=== PATIENT | male | born 1950 | race Caucasian/White ===

== ENCOUNTER 2022-01-11 17:34 | Inpatient (IN) | payer BC ==
[~2022-01-11] VITALS: Ht 177.8 cm; Wt 61.7 kg
--- NOTE | 2022-01-11 18:46 | NUR ---
ASSUMED CARE OF PT. PT STATES "FEELING BETTER" AND REQUESTED TO HAVE LIGHTS DIMMED TO SLEEP. SIDE RAILS UP. DR SMITH HAS JUST SPOKEN W/ PT WELL.
[2022-01-11 19:52] LABS: ALANINE AMINOTRANSFERASE 30 U/L (12-78); ALBUMIN 2.1 G/DL (3.4-5.0); ALBUMIN/GLOBULIN RATIO 0.5 (1.1-1.5); ALKALINE PHOSPHATASE 107 IU/L (46-116); ANION GAP 9 (8-16); ASPARTATE AMINO TRANSFERASE 52 U/L (10-37); BASOPHILS % (AUTO) 0.1 % (0-1); BILIRUBIN,TOTAL 1.4 MG/DL (0.1-1.0); BLOOD UREA NITROGEN 30 MG/DL (7-18); CALCIUM 8.3 MG/DL (8.5-10.1); CHLORIDE 104 MMOL/L (99-107); CREATININE 2.15 MG/DL (0.60-1.10); EOSINOPHILS % (AUTO) 0.1 % (0-6); GLUCOSE 90 MG/DL (70-104); HEMATOCRIT 38.1 % (42.0-52.0); HEMOGLOBIN 12.6 g/dl (14.0-17.9); LYMPHOCYTES # (AUTO) 0.3 X10'3 (1.1-4.8); LYMPHOCYTES % (AUTO) 5.7 % (21-51); MEAN CORPUSCULAR VOLUME 84.8 FL (78-98); MEAN PLATELET VOLUME 6.7 FL (7.4-10.4); MONOCYTES # (AUTO) 0.2 X10'3 (0-0.9); MONOCYTES % (AUTO) 3.4 % (2-12); NEUTROPHILS # (AUTO) 4.4 X10'3 (1.8-7.7); NEUTROPHILS % (AUTO) 90.7 % (42-75); PLATELET COUNT 388 X10'3 (140-440); POTASSIUM 4.4 MMOL/L (3.5-5.1); RED CELL DISTRIBUTION WIDTH 16.8 % (11.5-14.5); SODIUM 139 MMOL/L (135-145); TOTAL CARBON DIOXIDE 26.2 MMOL/L (24-32); TOTAL PROTEIN 6.2 G/DL (6.4-8.2); WHITE BLOOD COUNT 4.8 X10'3 (4.5-11.0); eGFR 31 ML/MIN
--- NOTE | 2022-01-11 20:12 | NUR ---
SPOKE TO DR MUNOZ CONCERNING PT'S SLIGHT TACHYCARDIA. GIVEN VO FOR LITER OF NS. FLUIDS RUNNING AT PRESENT.
[2022-01-11] MEDS ORDERED: normal saline 1000ml 1,000 ML IV ONE ×2 (20:15→23:20)
[2022-01-11] MEDS ORDERED: CefTRIAXone 2gm/NS 100ml IVPB 100 ML IV ONE (22:05)
--- NOTE | 2022-01-11 22:33 | NUR ---
DR JAMA HAS COME TO ASSESS PT. I LET HIM KNOW ABOUT PT'S MILD BUT SUSTAINED TACHYCARDIA FOR THE PAST COUPLE HOURS. HE WILL PUT IT IN ORDER FOR A NELSON CATHETER HE WANTS TO KNOW URINE OUTPUT. NO OTHER ORDERS AT PRESENT.
--- NOTE | 2022-01-11 22:59 | NUR ---
BLOOD CULTURES HAVE BEEN TAKEN. ANTIBIOTICS ARE RUNNING.
--- NOTE | 2022-01-11 23:01 | NUR ---
NELSON HAS BEEN PLACED. PT HAS NO COMPLAINTS AT PRESENT.
--- NOTE | 2022-01-11 23:09 | NUR ---
SPOKE TO DR JAMA OVER THE PHONE. I LET HIM KNOW THAT CT RESULTS ARE UP AND REPORTING "SMALL AMOUNT OF PNEUMOPERITONEUM, COMPATIBLE WITH A PERFORATED VISCUS." DR JAMA IS ALSO AWARE THAT I ONLY GOT 200 CC OF VERY DARK URINE FROM NELSON CATHETER AFTER GIVING HIM A LITER FLUID BOLUS. DR JAMA GAVE A VO FOR ANOTHER LITER OF NS FLUID BOLUS. WILL CONTINUE TO MONITOR PT.
[2022-01-11] MEDS ORDERED: ondansetron 4mg rapidly disintigrating tab PO PRN (23:20)
[2022-01-11] MEDS ORDERED: morphine 2 MG/ML inj. syringe IV PRN ×2 (23:20)
[2022-01-11] MEDS ORDERED: ondansetron/PF 4mg/2ml inj IV PRN (23:20)
[2022-01-11] MEDS ORDERED: magnesium hydroxide 30ml (MOM) UD suspension PO PRN (23:20)
[2022-01-11] MEDS ORDERED: HYDROmorphone inj. 0.5 MG/0.5 ML DISP.SYRIN IV PRN (23:20)
[2022-01-11] MEDS ORDERED: mag hydrox/Alum hydrox/simeth 30ml oral suspension PO PRN (23:20)
[2022-01-11] MEDS ORDERED: HYDROcodone/acetaminophen 5mg/325mg tablet PO PRN (23:20)
[2022-01-11] MEDS ORDERED: acetaminophen 325mg tablet PO PRN (23:20)
[2022-01-11] MEDS ORDERED: acetaminophen 650mg rectal suppository RC PRN (23:20)
[2022-01-11] MEDS ORDERED: bisacodyl 10mg suppository rectal RC PRN (23:20)
[2022-01-11] MEDS ORDERED: diphenhydrAMINE 50 mg/ml inj IV PRN (23:20)
[2022-01-11] MEDS ORDERED: diphenhydrAMINE 25mg capsule PO PRN (23:20)
[2022-01-11 23:32] LABS: CLARITY,URINE CLOUDY (Clear); GLUCOSE, URINE NEGATIVE (Neg); KETONES,URINE TRACE mg/dl (Neg); LEUKOCYTE ESTERASE ,URINE NEGATIVE (Neg); OCCULT BLOOD,URINE TRACE-INTACT (Neg); PROTEIN,URINE 30 mg/dl (Neg)
[2022-01-11] MEDS: normal saline 1000ml 1,000 ML IV SCH (23:38)
[2022-01-11 23:42] LABS: HEMOGLOBIN A1C 5.9 % (4.5-6.2)
[2022-01-11] MEDS ORDERED: nicotine 21mg patch - 24 hr TD ONE (23:45)
[2022-01-11 23:48] LABS: UA COLLECTION TYPE FOLEY CATH
[2022-01-11 23:50] LABS: COLOR,URINE DARK YELLOW (Yellow); NITRITES, URINE NEGATIVE (Neg)
[2022-01-11 23:53] LABS: BACTERIA,URINE 3+ /HPF (Neg); COARSE GRANULAR CAST 0-3 /LPF (NEGATIVE); FINE GRANULAR CAST 0-3 /LPF (NEGATIVE); MUCUS STRANDS FEW /LPF (Neg); SQUAMOUS EPITHELIAL CELL,UR FEW /LPF (FEW)
[2022-01-11 23:56] LABS: MAGNESIUM 2.1 MG/DL (1.5-2.4); PHOSPHORUS 6.1 MG/DL (2.3-4.5)
[2022-01-11] MEDS ORDERED: diatr meglu/diatrizoate 30ml oral sol.-(3 dose) bottle ONE (23:59)
[2022-01-12] VITALS (22 sets, daily range): BP systolic 107–156; BP diastolic 61–83
--- NOTE | 2022-01-12 00:38 | NUR ---
Received report from HECTOR Smith. Awaiting patient arrival to the floor.
[2022-01-12 01:18] LABS: BASOPHILS % (AUTO) 0.2 % (0-1); EOSINOPHILS % (AUTO) 0.4 % (0-6); HEMOGLOBIN 11.9 g/dl (14.0-17.9); LYMPHOCYTES # (AUTO) 0.3 X10'3 (1.1-4.8); LYMPHOCYTES % (AUTO) 6.4 % (21-51); MEAN CORPUSCULAR HEMOGLOBIN 28.3 PG (27.0-31.0); MEAN CORPUSCULAR HGB CONC 33.1 g/dL (33.0-36.5); MEAN CORPUSCULAR VOLUME 85.4 FL (78-98); MEAN PLATELET VOLUME 6.7 FL (7.4-10.4); MONOCYTES # (AUTO) 0.2 X10'3 (0-0.9); MONOCYTES % (AUTO) 3.8 % (2-12); NEUTROPHILS % (AUTO) 89.2 % (42-75); PLATELET COUNT 357 X10'3 (140-440); RED BLOOD COUNT 4.21 X10'6 (4.70-6.10); RED CELL DISTRIBUTION WIDTH 16.6 % (11.5-14.5); WHITE BLOOD COUNT 4.5 X10'3 (4.5-11.0)
[2022-01-12 01:27] LABS: APTT 31 SECONDS (22-32)
[2022-01-12 01:30] LABS: ALANINE AMINOTRANSFERASE 28 U/L (12-78); ALBUMIN 1.8 G/DL (3.4-5.0); ALBUMIN/GLOBULIN RATIO 0.4 (1.1-1.5); ALKALINE PHOSPHATASE 92 IU/L (46-116); ANION GAP 13 (8-16); ASPARTATE AMINO TRANSFERASE 50 U/L (10-37); BLOOD UREA NITROGEN 33 MG/DL (7-18); BUN/CREATININE RATIO 17.4 (5.4-32.0); CALCIUM 7.8 MG/DL (8.5-10.1); CHLORIDE 104 MMOL/L (99-107); GLUCOSE 83 MG/DL (70-104); POTASSIUM 4.2 MMOL/L (3.5-5.1); SODIUM 139 MMOL/L (135-145); TOTAL CARBON DIOXIDE 21.7 MMOL/L (24-32); TOTAL PROTEIN 5.9 G/DL (6.4-8.2); eGFR 35 ML/MIN
[2022-01-12 01:38] LABS: CHOL/HDL RATIO 4.4 (0.00-4.99); CHOLESTEROL 74 MG/DL (0-200); CREATINE KINASE 111 U/L (39-308); HDL CHOLESTEROL 17 MG/DL (35-60); LDL CHOLESTEROL 30 MG/DL (50-100); TRIGLYCERIDES 58 MG/DL (20-135)
[2022-01-12 01:51] LABS: LIPASE < 50 U/L (73-393)
[2022-01-12] MEDS: diatr meglu/diatrizoate 30ml oral sol.-(3 dose) bottle PO SCH (02:20)
[2022-01-12] MEDS ORDERED: NO HOME MEDS ×2 (04:28→05:52)
--- NOTE | 2022-01-12 04:30 | NUR ---
Patient pulled out NG tube, tele and was actively attempting to pull out Marquez catheter as this RN walked in. Asked patient what he's doing and he stated "just trying to get some of these tubes out. Its kingston hard." Educated on the importance of not pulling out any tubes and keeping them in place to prevent any further injury to self as well as to serve its purpose. Patient verbalized understanding. Oriented patient to person, place, time and events. Re-inserted NG tube with help of another RN and placed patient back on tele. Bed alarms on and audible. Call light and items of frequent use within reach. Will continue to monitor.
--- NOTE | 2022-01-12 05:51 | NUR ---
Patient taken down to OR
[2022-01-12] MEDS: normal saline 1000ml 1,000 ML IV SCH ×4 (05:58→22:11)
[2022-01-12] MEDS ORDERED: sevoflurane 250ml liquid IH ONE (06:09)
[2022-01-12] MEDS ORDERED: midazolam 1 mg/ML 2ml injection ONE (06:11)
[2022-01-12] MEDS ORDERED: fentaNYL /PF 50mcg/ml 5ml ampule ONE (06:12)
[2022-01-12] MEDS ORDERED: rocuronium 10mg/ml inj IV ONE (06:12)
[2022-01-12] MEDS ORDERED: propofol inj 20 ML IV ONE (06:12)
--- NOTE | 2022-01-12 06:30 | NUR ---
Problems reprioritized. Patient report given, questions answered & plan of care reviewed with HECTOR Gifford.
[2022-01-12] MEDS ORDERED: morphine 4 MG/ML inj SYRINge IV PRN (07:10)
[2022-01-12] MEDS ORDERED: meperidine/PF 25mg/ml syringe IV PRN ×3 (07:10)
[2022-01-12] MEDS ORDERED: ringers solution, lacted 1,000 ML IV SCH (07:10)
[2022-01-12] MEDS ORDERED: ondansetron/PF 4mg/2ml inj IV PRN (07:10)
[2022-01-12] MEDS ORDERED: proCHLORperazine 10 MG/2 ml inj IV PRN (07:10)
[2022-01-12] MEDS ORDERED: morphine 2 MG/ML inj. syringe IV PRN (07:10)
[2022-01-12] MEDS ORDERED: albumin (Human) 5% 250ml 250 ML IV ONE ×2 (07:12→07:42)
[2022-01-12] MEDS ORDERED: ceFOXitin 1000 MG inj ONE ×2 (07:12)
[2022-01-12] MEDS: pantoprazole 40MG/NS 100ML BAG 100 ML IV SCH (08:00)
[2022-01-12] MEDS: docusate sod 100mg capsule PO SCH ×4 (08:00→22:06)
[2022-01-12] MEDS ORDERED: piperacillin/tazo 4.5gm/100ml 100 ML IV SCH (08:00)
[2022-01-12] MEDS ORDERED: FENTANYL CITRATE/PF 50 MCG/1 ML VIAL ONE (08:16)
[2022-01-12] MEDS ORDERED: glycopyrrolate 0.2mg/ml inj ONE (08:33)
[2022-01-12] MEDS ORDERED: neostigmine methylsulfate 1 MG/ML 10ml vial ONE (08:33)
--- NOTE | 2022-01-12 08:51 | NUR ---
Received from OR via BED, accompanied by Anesthesiologist DR MOYA and report given by Anesthesiologist AND CONCRETE LABORER. PT VERY DROWSY, NO S/S OF DISTRESS/DISCOMFORT. ABDOMEN W/GAUZE DRSG COVERING INCISION CDI, CHAITANYA TO LEFT ABD TO BULB SX W/S/S DRAINAGE, COLOSTOMY TO RIGHT ABD QUADRANT W/RED STOMA, NO DRAINAGE, NELSON CATHETER TO GRAVITY DRAINAGE W/DARK YELLOW URINE IN DRAINAGE BAG. PT RESTING COMFORTABLY. Addendum: 01/12/22 at 0936 by Yessenia Walton RN Amended: Links added.
[2022-01-12] MEDS ORDERED: naloxone 0.4 mg/ml inj IV PRN (09:15)
[2022-01-12] MEDS ORDERED: HYDROmorphone inj. 0.5 MG/0.5 ML DISP.SYRIN IV PRN (09:45)
--- NOTE | 2022-01-12 10:41 | NUR ---
Report called to receiving nurse. Transferred via BED, NO Belongings. NURSES AID AT BEDSIDE TO RECEIVE PT, GROCERY DEPARTMENT MANAGER WELL, PT SOMEWHAT CONFUSED AND WANTING TO GET OOB, STAYED W/PT WHILE NURSES AID WENT AND THEN PLACED A TABS UNIT ON PT. Special Issues communicated to receiving nurse. YES. Addendum: 01/12/22 at 1057 by Yessenia Walton RN Amended: Links added.
--- NOTE | 2022-01-12 11:20 | NUR ---
Patient got here not too long ago. Patient alert, oriented x 1 only. Patient currently on tab alarm. Patient was hooked to post op vital sign machine by the LOCKSTITCH WAISTBAND SETTER. Patient has midline incision clean, dry, and intact. 1 CHAITANYA noted with small amount of serosanguinous drainage and a new colostomy. NGT connected to low continuous suction. Patient was instructed not to pull his tubes.
--- NOTE | 2022-01-12 12:00 | NUR ---
As I came back from lunch, charge nurse Dora told me that patient pulled out his NGT. She told me that she is putting order for Ativan IV for this patient
[2022-01-12] MEDS: LORazepam 2 mg/ml vial IV PRN (12:53)
--- NOTE | 2022-01-12 14:33 | NUR ---
I called Dr. Chung on his phone to let him know that patient pulled his NGT. Dr. Chung said to leave it off.
[2022-01-12] MEDS: piperacillin/tazo 4.5gm/100ml 100 ML IV SCH ×2 (16:00→23:42)
--- NOTE | 2022-01-12 16:31 | NUR ---
12:54 Zosyn IV was given. 16:00 schedule not administered as the order said every 8 hours
--- NOTE | 2022-01-12 16:42 | NUR ---
Patient has been calm since I gave the Ativan 0.5 mg IV
[2022-01-12] MEDS: albuterol 2.5 MG/3 ML nebule NEB SCH (20:00)
[2022-01-13] VITALS: BP 111/63
[2022-01-13] MEDS: normal saline 1000ml 1,000 ML IV SCH ×4 (00:47→19:16)
--- NOTE | 2022-01-13 01:00 | NUR ---
Pt pulled out IV in Lt arm had another IV already in Rt A/C gave ativan and pt calmed down.
[2022-01-13] MEDS: LORazepam 2 mg/ml vial IV PRN (01:14)
[2022-01-13 04:00] VITALS: BP 104/49
[2022-01-13 06:27] LABS: BASOPHILS % (AUTO) 0.1 % (0-1); EOSINOPHILS % (AUTO) 0.2 % (0-6); HEMOGLOBIN 8.6 g/dl (14.0-17.9); LYMPHOCYTES # (AUTO) 0.4 X10'3 (1.1-4.8); LYMPHOCYTES % (AUTO) 7.2 % (21-51); MEAN CORPUSCULAR HEMOGLOBIN 28.2 PG (27.0-31.0); MEAN CORPUSCULAR HGB CONC 33.2 g/dL (33.0-36.5); MEAN CORPUSCULAR VOLUME 84.9 FL (78-98); MEAN PLATELET VOLUME 6.5 FL (7.4-10.4); MONOCYTES # (AUTO) 0.2 X10'3 (0-0.9); MONOCYTES % (AUTO) 3.7 % (2-12); NEUTROPHILS # (AUTO) 4.5 X10'3 (1.8-7.7); NEUTROPHILS % (AUTO) 88.8 % (42-75); PLATELET COUNT 336 X10'3 (140-440); RED BLOOD COUNT 3.06 X10'6 (4.70-6.10); RED CELL DISTRIBUTION WIDTH 17.2 % (11.5-14.5)
[2022-01-13 06:40] LABS: ALANINE AMINOTRANSFERASE 16 U/L (12-78); ALBUMIN 1.5 G/DL (3.4-5.0); ALBUMIN/GLOBULIN RATIO 0.5 (1.1-1.5); ALKALINE PHOSPHATASE 55 IU/L (46-116); ANION GAP 11 (8-16); ASPARTATE AMINO TRANSFERASE 26 U/L (10-37); BILIRUBIN,TOTAL 0.8 MG/DL (0.1-1.0); BLOOD UREA NITROGEN 28 MG/DL (7-18); BUN/CREATININE RATIO 18.8 (5.4-32.0); CALCIUM 7.7 MG/DL (8.5-10.1); CHLORIDE 108 MMOL/L (99-107); CREATININE 1.49 MG/DL (0.60-1.10); GLUCOSE 75 MG/DL (70-104); POTASSIUM 4.1 MMOL/L (3.5-5.1); SODIUM 142 MMOL/L (135-145); TOTAL CARBON DIOXIDE 23.1 MMOL/L (24-32); TOTAL PROTEIN 4.8 G/DL (6.4-8.2); eGFR 47 ML/MIN
--- NOTE | 2022-01-13 06:42 | NUR ---
Problems reprioritized. Patient report given, questions answered & plan of care reviewed with HECTOR Tubbs.
[2022-01-13 07:00] VITALS: BP 105/52
[2022-01-13] MEDS: docusate sod 100mg capsule PO SCH ×2 (08:00→20:00)
--- NOTE | 2022-01-13 09:15 | NUR ---
Patient's midline surgical dressing found off, clive were intact upon assessment. I reported this to the charge nurse Dora. She went see to look at the incision site. We thought patient might have taken his dressing off himself. Patient was discouraged from touching his wound or removing the dressing. Dora YOUNG took the packing out herself while she was at bedside with me. A new dressing applied on the midline incision.
--- NOTE | 2022-01-13 09:29 | NUR ---
peripheral IV leaking and not flushing. I tried to put a new peripheral IV without success, x 3 attempts already. Charge nurse Dora notified about this.
[2022-01-13] MEDS: pantoprazole 40MG/NS 100ML BAG 100 ML IV SCH (10:32)
[2022-01-13] MEDS: piperacillin/tazo 4.5gm/100ml 100 ML IV SCH ×2 (10:32→16:16)
[2022-01-13 12:00] VITALS: BP 101/55
--- NOTE | 2022-01-13 15:05 | NUR ---
[facility] assessment for surgical pt 65 year old male admitted from [facility] for evaluation of bowel perforation. Pt presented to [facility] 2 weeks prior w/ similar sx and left AMA. Pt admitted for sepsis, pneumoperitoneum, SBO, right lung mass, ARF, UTI, hypovolemia, COPD. Pt is s/p ex lap, lysis of adhesions, and proximal transvers colectomy w/ colostomy. Pt found to have complex mass involving the proximal transverse colon w/ extensive thicken of transverse colonic mesentery extending to the superior mesenteric vein. Small bowel adhesions. Pt has hx of cholelithiasis. . Physical assessment finds him to have an ostomy appliance to his RLQ , the stoma appears to be red and moist through bag and there is small amount of serousang drainage noted in bag. Pt is noted to be somewhat confused and unable to follow conversation and has a sitter. Will re approach in am to attempt to do ostomy education. Report to primary nurse provided. Addendum: 01/13/22 at 1510 by Laura Neal RN Amended: Links added.
--- NOTE | 2022-01-13 19:26 | NUR ---
Patient in room [facility] 357. I have received report from HECTOR Tubbs and had the opportunity to ask questions and assume patient care. Addendum: 01/13/22 at 1927 by Ade Abreu RN Amended: Links added.
[2022-01-13 20:00] VITALS: BP 109/57
[2022-01-13] MEDS: diatr meglu/diatrizoate 30ml oral sol.-(3 dose) bottle PO SCH (20:43)
[2022-01-13 23:45] VITALS: BP 158/71
--- NOTE | 2022-01-13 23:45 | NUR ---
Pain medication offered to pt, but he refused states "I dont really have any pain" some pian with turning, but states comfortable after repositioned. Addendum: 01/14/22 at 0318 by Ade Abreu RN Amended: Links added.
[2022-01-14] MEDS: piperacillin/tazo 4.5gm/100ml 100 ML IV SCH ×4 (00:33→23:20)
[2022-01-14] MEDS: normal saline 1000ml 1,000 ML IV SCH ×4 (00:34→14:14)
--- NOTE | 2022-01-14 06:30 | NUR ---
Problems reprioritized. Patient report given, questions answered & plan of care reviewed with HECTOR Benoit. Addendum: 01/14/22 at 0631 by Ade Abreu RN Amended: Links added.
[2022-01-14 06:39] LABS: BASOPHILS % (AUTO) 0.1 % (0-1); EOSINOPHILS % (AUTO) 0.3 % (0-6); HEMATOCRIT 25.8 % (42.0-52.0); HEMOGLOBIN 8.5 g/dl (14.0-17.9); LYMPHOCYTES # (AUTO) 0.5 X10'3 (1.1-4.8); LYMPHOCYTES % (AUTO) 6.7 % (21-51); MEAN CORPUSCULAR HEMOGLOBIN 27.9 PG (27.0-31.0); MEAN CORPUSCULAR HGB CONC 32.9 g/dL (33.0-36.5); MEAN CORPUSCULAR VOLUME 84.6 FL (78-98); MEAN PLATELET VOLUME 6.4 FL (7.4-10.4); MONOCYTES # (AUTO) 0.3 X10'3 (0-0.9); MONOCYTES % (AUTO) 4.8 % (2-12); NEUTROPHILS # (AUTO) 6.3 X10'3 (1.8-7.7); NEUTROPHILS % (AUTO) 88.1 % (42-75); PLATELET COUNT 314 X10'3 (140-440); RED BLOOD COUNT 3.05 X10'6 (4.70-6.10); RED CELL DISTRIBUTION WIDTH 17.2 % (11.5-14.5); WHITE BLOOD COUNT 7.2 X10'3 (4.5-11.0)
[2022-01-14 07:02] LABS: ALANINE AMINOTRANSFERASE 21 U/L (12-78); ALBUMIN 1.4 G/DL (3.4-5.0); ALBUMIN/GLOBULIN RATIO 0.4 (1.1-1.5); ALKALINE PHOSPHATASE 56 IU/L (46-116); ANION GAP 9 (8-16); ASPARTATE AMINO TRANSFERASE 31 U/L (10-37); BILIRUBIN,TOTAL 0.8 MG/DL (0.1-1.0); BLOOD UREA NITROGEN 22 MG/DL (7-18); CALCIUM 7.6 MG/DL (8.5-10.1); CHLORIDE 112 MMOL/L (99-107); CREATININE 1.22 MG/DL (0.60-1.10); GLUCOSE 65 MG/DL (70-104); POTASSIUM 3.1 MMOL/L (3.5-5.1); SODIUM 142 MMOL/L (135-145); TOTAL CARBON DIOXIDE 20.8 MMOL/L (24-32); TOTAL PROTEIN 4.8 G/DL (6.4-8.2); eGFR 59 ML/MIN
[2022-01-14 07:30] VITALS: BP 134/76
[2022-01-14] MEDS: docusate sod 100mg capsule PO SCH ×2 (07:36→19:33)
[2022-01-14] MEDS: pantoprazole 40MG/NS 100ML BAG 100 ML IV SCH (07:36)
[2022-01-14] MEDS ORDERED: DEXTROSE 15 GM of carb/4 tabs (each vial/BOTTLE has 4 tablets) PO PRN (08:25)
[2022-01-14] MEDS ORDERED: dextrose 15gm/59ml oral solution PO ONE (08:25)
[2022-01-14] MEDS: dextrose 5%-1/2 normal saline 1,000 ML IV SCH ×2 (09:18→19:30)
[2022-01-14] MEDS ORDERED: potassium Cl 20 mEq SR tablet PO STA (11:06)
[2022-01-14 12:25] VITALS: BP 140/71
[2022-01-14 19:23] VITALS: BP 150/76
[2022-01-15] VITALS: BP 141/73
[2022-01-15] MEDS: dextrose 5%-1/2 normal saline 1,000 ML IV SCH (04:27)
[2022-01-15 06:20] LABS: BASOPHILS % (AUTO) 0.1 % (0-1); EOSINOPHILS % (AUTO) 0.2 % (0-6); HEMATOCRIT 26.6 % (42.0-52.0); HEMOGLOBIN 8.6 g/dl (14.0-17.9); LYMPHOCYTES # (AUTO) 0.6 X10'3 (1.1-4.8); LYMPHOCYTES % (AUTO) 7.5 % (21-51); MEAN CORPUSCULAR HEMOGLOBIN 27.1 PG (27.0-31.0); MEAN CORPUSCULAR HGB CONC 32.4 g/dL (33.0-36.5); MEAN CORPUSCULAR VOLUME 83.6 FL (78-98); MEAN PLATELET VOLUME 6.4 FL (7.4-10.4); MONOCYTES # (AUTO) 0.5 X10'3 (0-0.9); MONOCYTES % (AUTO) 6.1 % (2-12); NEUTROPHILS # (AUTO) 6.5 X10'3 (1.8-7.7); NEUTROPHILS % (AUTO) 86.1 % (42-75); PLATELET COUNT 307 X10'3 (140-440); RED BLOOD COUNT 3.18 X10'6 (4.70-6.10); RED CELL DISTRIBUTION WIDTH 17.2 % (11.5-14.5); WHITE BLOOD COUNT 7.5 X10'3 (4.5-11.0)
--- NOTE | 2022-01-15 06:33 | NUR ---
Problems reprioritized. Patient report given, questions answered & plan of care reviewed with HECTOR Ye.
--- NOTE | 2022-01-15 06:41 | NUR ---
Patient in room [facility] 357. I have received report from dar YOUNG and had the opportunity to ask questions and assume patient care.
[2022-01-15 06:43] LABS: ALANINE AMINOTRANSFERASE 24 U/L (12-78); ALBUMIN 1.3 G/DL (3.4-5.0); ALBUMIN/GLOBULIN RATIO 0.4 (1.1-1.5); ALKALINE PHOSPHATASE 86 IU/L (46-116); ANION GAP 6 (8-16); ASPARTATE AMINO TRANSFERASE 31 U/L (10-37); BILIRUBIN,TOTAL 0.8 MG/DL (0.1-1.0); BLOOD UREA NITROGEN 16 MG/DL (7-18); BUN/CREATININE RATIO 13.4 (5.4-32.0); CALCIUM 7.5 MG/DL (8.5-10.1); CHLORIDE 109 MMOL/L (99-107); CREATININE 1.19 MG/DL (0.60-1.10); GLUCOSE 125 MG/DL (70-104); POTASSIUM 3.2 MMOL/L (3.5-5.1); SODIUM 140 MMOL/L (135-145); TOTAL CARBON DIOXIDE 24.8 MMOL/L (24-32); eGFR 60 ML/MIN
[2022-01-15 07:00] VITALS: BP 127/62
[2022-01-15] MEDS: pantoprazole 40MG/NS 100ML BAG 100 ML IV SCH (07:42)
[2022-01-15] MEDS: piperacillin/tazo 4.5gm/100ml 100 ML IV SCH ×2 (08:38→16:58)
[2022-01-15] MEDS: docusate sod 100mg capsule PO SCH ×2 (08:50→20:37)
--- NOTE | 2022-01-15 10:48 | NUR ---
Initial: Pt presented with abdominal pain found to have pneumoperitoneum. 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 Pt POD # 3 s/p exploratory laparotomy with transverse colon resection and colostomy. Per EMR pt A/O x 2 and confused, with acute encephalopathy per MD note. Pt would benefit from colostomy nutrition therapy education once appropriate. Patient's diet has been advanced to clear liquids and pt documented with average 58% of first three meals. Pending documentation of PO intake for today. LBM 4, documented with 150 mL stool output per I&O. Will continue to follow closely and make recommendations as appropriate. Recommendations: 1) Advance to low fiber diet as medically indicated 2) Bowel care per MD 3) Scaled weight this admit; subsequent weekly scaled weights 4) Colostomy nutrition therapy education once appropriate Addendum: 01/15/22 at [address] Amended: Links added.
--- NOTE | 2022-01-15 10:53 | NUR ---
Dr Chung saw pt and stated to KVO IV, order PTx to eval and tx pt, order full liquid diet, and admin Lovenox 40 QD SQ. HECTOR Ye notified.
--- NOTE | 2022-01-15 12:07 | NUR ---
[facility] assessment for ostomy care. Pt awake and agrees to care. Provided ostomy wafer and drainge bag and demonstrated w/ education how to open draiange bag and place to wafer. Return demonstration required much hands on assistance due to poor motor skills and concentration and retention. Ostomy pouch removed, see stoma assessment. Report to senior front end engineer for primary nurse that pt does not seem to be a candidate for ostomy education and self care. Addendum: 01/15/22 at 1226 by Laura Neal RN Amended: Links added.
[2022-01-15] MEDS: HYDROcodone/acetaminophen 10/325mg tab PO PRN (12:27)
[2022-01-15 14:00] VITALS: BP 113/57
[2022-01-15 18:00] VITALS: BP 126/69
--- NOTE | 2022-01-15 18:43 | NUR ---
patient appears stable all cares given colostomy moving liquid brown stool. worked with PT. seen by Dr Chung. report given to callie YOUNG
[2022-01-15] MEDS: magnesium hydroxide 30ml (MOM) UD suspension PO SCH (20:37)
[2022-01-15] MEDS: enoxaparin 40mg/0.4ml syringe SUBCUT SCH (20:38)
[2022-01-16] VITALS: BP 157/67
[2022-01-16] MEDS: albuterol 2.5 MG/3 ML nebule NEB SCH ×2 (01:17→11:00)
[2022-01-16] MEDS: piperacillin/tazo 4.5gm/100ml 100 ML IV SCH ×3 (01:18→16:51)
[2022-01-16] MEDS: dextrose 5%-1/2 normal saline 1,000 ML IV SCH ×2 (05:19→22:12)
--- NOTE | 2022-01-16 06:46 | NUR ---
Patient in room [facility] 357. I have received report from Susana YOUNG and had the opportunity to ask questions and assume patient care.
[2022-01-16 07:14] VITALS: BP 128/68
[2022-01-16 07:35] LABS: BASOPHILS % (AUTO) 0.1 % (0-1); EOSINOPHILS % (AUTO) 0.8 % (0-6); HEMATOCRIT 25.1 % (42.0-52.0); HEMOGLOBIN 8.3 g/dl (14.0-17.9); LYMPHOCYTES # (AUTO) 0.7 X10'3 (1.1-4.8); MEAN CORPUSCULAR HEMOGLOBIN 27.6 PG (27.0-31.0); MEAN CORPUSCULAR VOLUME 83.8 FL (78-98); MEAN PLATELET VOLUME 6.4 FL (7.4-10.4); MONOCYTES # (AUTO) 0.4 X10'3 (0-0.9); NEUTROPHILS # (AUTO) 4.9 X10'3 (1.8-7.7); NEUTROPHILS % (AUTO) 81.1 % (42-75); PLATELET COUNT 279 X10'3 (140-440); RED BLOOD COUNT 2.99 X10'6 (4.70-6.10); RED CELL DISTRIBUTION WIDTH 16.9 % (11.5-14.5)
[2022-01-16] MEDS: pantoprazole 40MG/NS 100ML BAG 100 ML IV SCH (07:36)
[2022-01-16] MEDS: docusate sod 100mg capsule PO SCH ×2 (07:39→20:20)
[2022-01-16] MEDS: magnesium hydroxide 30ml (MOM) UD suspension PO SCH ×2 (07:39→20:20)
[2022-01-16 08:09] LABS: ALANINE AMINOTRANSFERASE 22 U/L (12-78); ALBUMIN 1.3 G/DL (3.4-5.0); ALBUMIN/GLOBULIN RATIO 0.4 (1.1-1.5); ALKALINE PHOSPHATASE 91 IU/L (46-116); ANION GAP 6 (8-16); ASPARTATE AMINO TRANSFERASE 24 U/L (10-37); BILIRUBIN,TOTAL 0.9 MG/DL (0.1-1.0); BLOOD UREA NITROGEN 13 MG/DL (7-18); BUN/CREATININE RATIO 11.7 (5.4-32.0); CALCIUM 7.3 MG/DL (8.5-10.1); CHLORIDE 107 MMOL/L (99-107); CREATININE 1.11 MG/DL (0.60-1.10); GLUCOSE 78 MG/DL (70-104); SODIUM 139 MMOL/L (135-145); TOTAL CARBON DIOXIDE 26.3 MMOL/L (24-32); TOTAL PROTEIN 4.9 G/DL (6.4-8.2); eGFR 65 ML/MIN
[2022-01-16 08:24] LABS: POTASSIUM 2.9 MMOL/L (3.5-5.1)
--- NOTE | 2022-01-16 08:35 | NUR ---
Dr De paged via SMS Assist = PAGER ID: [phone] MESSAGE as follows "re: Johanna 357a K level=2.9 Any orders? Thanks, Dl or Candy [id number]" Response pending.
[2022-01-16] MEDS ORDERED: potassium Cl 20 mEq SR tablet PO STA (11:26)
[2022-01-16 12:03] VITALS: BP 128/73
[2022-01-16] MEDS ORDERED: potassium Cl 20 mEq SR tablet PO ONE (16:00)
--- NOTE | 2022-01-16 18:20 | NUR ---
Patient in room [facility] 357. I have received report from HECTOR Lizama and had the opportunity to ask questions and assume patient care.
--- NOTE | 2022-01-16 18:29 | NUR ---
Problems reprioritized. Patient report given, questions answered & plan of care reviewed with Jennifer YOUNG.
[2022-01-16 20:00] VITALS: BP 129/68
[2022-01-16] MEDS: enoxaparin 40mg/0.4ml syringe SUBCUT SCH (20:21)
[2022-01-17 00:01] VITALS: BP 134/77
[2022-01-17] MEDS: piperacillin/tazo 4.5gm/100ml 100 ML IV SCH ×3 (00:54→16:50)
--- NOTE | 2022-01-17 06:49 | NUR ---
Problems reprioritized. Patient report given, questions answered & plan of care reviewed with HECTOR Medina.
[2022-01-17 07:00] VITALS: BP 122/70
--- NOTE | 2022-01-17 07:02 | NUR ---
Patient in room [facility] 357. I have received report from Jennifer YOUNG and had the opportunity to ask questions and assume patient care.
[2022-01-17] MEDS: magnesium hydroxide 30ml (MOM) UD suspension PO SCH ×2 (08:00→20:34)
[2022-01-17] MEDS: docusate sod 100mg capsule PO SCH ×2 (08:00→20:34)
[2022-01-17] MEDS: pantoprazole 40mg Tablet.DR PO SCH (08:38)
[2022-01-17] MEDS ORDERED: magnesium hydroxide 30ml (MOM) UD suspension PO ONE (09:55)
[2022-01-17 11:00] VITALS: BP 118/70
--- NOTE | 2022-01-17 11:46 | NUR ---
f/u 01/17: Provided pt w/ written and verbal colostomy nutrition therapy education w/ RD contact info Addendum: 01/17/22 at [address] Amended: Links added.
[2022-01-17 14:43] LABS: BASOPHILS % (AUTO) 0.3 % (0-1); EOSINOPHILS # (AUTO) 0.1 X10'3 (0-0.9); EOSINOPHILS % (AUTO) 0.7 % (0-6); HEMATOCRIT 28.5 % (42.0-52.0); HEMOGLOBIN 9.2 g/dl (14.0-17.9); LYMPHOCYTES # (AUTO) 0.7 X10'3 (1.1-4.8); LYMPHOCYTES % (AUTO) 7.5 % (21-51); MEAN CORPUSCULAR HEMOGLOBIN 27.7 PG (27.0-31.0); MEAN CORPUSCULAR HGB CONC 32.3 g/dL (33.0-36.5); MEAN CORPUSCULAR VOLUME 85.7 FL (78-98); MEAN PLATELET VOLUME 6.7 FL (7.4-10.4); MONOCYTES # (AUTO) 0.4 X10'3 (0-0.9); MONOCYTES % (AUTO) 4.3 % (2-12); NEUTROPHILS % (AUTO) 87.2 % (42-75); PLATELET COUNT 395 X10'3 (140-440); RED BLOOD COUNT 3.33 X10'6 (4.70-6.10); RED CELL DISTRIBUTION WIDTH 16.9 % (11.5-14.5); WHITE BLOOD COUNT 9.2 X10'3 (4.5-11.0)
[2022-01-17 14:50] LABS: ALANINE AMINOTRANSFERASE 19 U/L (12-78); ALBUMIN 1.5 G/DL (3.4-5.0); ALBUMIN/GLOBULIN RATIO 0.4 (1.1-1.5); ALKALINE PHOSPHATASE 114 IU/L (46-116); ANION GAP 8 (8-16); ASPARTATE AMINO TRANSFERASE 25 U/L (10-37); BILIRUBIN,TOTAL 0.9 MG/DL (0.1-1.0); BLOOD UREA NITROGEN 11 MG/DL (7-18); BUN/CREATININE RATIO 9.8 (5.4-32.0); CALCIUM 7.8 MG/DL (8.5-10.1); CHLORIDE 104 MMOL/L (99-107); CREATININE 1.12 MG/DL (0.60-1.10); GLUCOSE 96 MG/DL (70-104); POTASSIUM 3.1 MMOL/L (3.5-5.1); SODIUM 139 MMOL/L (135-145); TOTAL CARBON DIOXIDE 26.9 MMOL/L (24-32); TOTAL PROTEIN 5.6 G/DL (6.4-8.2); eGFR 65 ML/MIN
[2022-01-17] MEDS: albuterol 2.5 MG/3 ML nebule NEB SCH ×2 (15:04→21:30)
[2022-01-17 18:00] VITALS: BP 125/61
--- NOTE | 2022-01-17 18:04 | NUR ---
PAGER ID: [phone] MESSAGE: [id number]- Pt's K 3.1, would you like to replace K? or just a 1x give 40mEq. Thank you Carol Flores [phone] ortho
--- NOTE | 2022-01-17 18:20 | NUR ---
Patient in room ORTHO 4023A. I have received report from HECTOR crowley and had the opportunity to ask questions and assume patient care.
--- NOTE | 2022-01-17 18:29 | NUR ---
Problems reprioritized. Patient report given, questions answered & plan of care reviewed with callie YOUNG.
[2022-01-17] MEDS: enoxaparin 40mg/0.4ml syringe SUBCUT SCH (20:35)
[2022-01-17 22:00] VITALS: BP 120/69
[2022-01-18] MEDS: piperacillin/tazo 4.5gm/100ml 100 ML IV SCH ×4 (02:27→23:46)
[2022-01-18] MEDS: dextrose 5%-1/2 normal saline 1,000 ML IV SCH (05:19)
[2022-01-18 05:48] VITALS: BP 128/62
--- NOTE | 2022-01-18 06:11 | NUR ---
Problems reprioritized. Patient report given, questions answered & plan of care reviewed with HECTOR Chavez.
--- NOTE | 2022-01-18 06:50 | NUR ---
Patient in room ORTHO 4023A. I have received report from HECTOR GATICA and had the opportunity to ask questions and assume patient care.
[2022-01-18] MEDS: pantoprazole 40mg Tablet.DR PO SCH (07:48)
[2022-01-18] MEDS: docusate sod 100mg capsule PO SCH ×2 (07:54→19:42)
[2022-01-18] MEDS: magnesium hydroxide 30ml (MOM) UD suspension PO SCH ×2 (08:00→20:00)
[2022-01-18 08:22] VITALS: BP 141/75
[2022-01-18 10:00] VITALS: BP 152/68
--- NOTE | 2022-01-18 10:00 | NUR ---
reviewed Real student nurse physical assessment charting
--- NOTE | 2022-01-18 10:31 | NUR ---
Reassessment; Pt has been advanced to Regular diet though RD recommendation is for Low fiber diet given recent GI surgery w/ colostomy. Pt consuming avg 50-75% of meals which meets approximately 85% of est protein and energy needs. Will provide Smoothies BID for additional calories/protein. Noted w/ 600ml colostomy output 01/17. Pt is reportedly confused at times though able to feed self. Will continue to monitor Recommendations: 1) Change to Low Fiber diet given recent GI surgery 2) Smoothies BIDBD 3) Bowel care per MD 4) Scaled weight this admit; subsequent weekly scaled weights Addendum: 01/18/22 at [address] Amended: Links added.
--- NOTE | 2022-01-18 15:46 | NUR ---
checked over Elaine skilled nursing professional physical assessment charting
[2022-01-18 16:45] VITALS: BP 132/72
[2022-01-18 18:00] VITALS: BP 119/49
--- NOTE | 2022-01-18 18:28 | NUR ---
Problems reprioritized. Patient report given, questions answered & plan of care reviewed with HECTOR MENDES.
[2022-01-18] MEDS: enoxaparin 40mg/0.4ml syringe SUBCUT SCH (19:43)
[2022-01-18 22:00] VITALS: BP 126/68
[2022-01-19] MEDS: magnesium hydroxide 30ml (MOM) UD suspension PO SCH ×3 (00:26→20:00)
[2022-01-19 06:00] VITALS: BP 124/69
--- NOTE | 2022-01-19 06:21 | NUR ---
Problems reprioritized. Patient report given, questions answered & plan of care reviewed with HECTRO WIGGINS.
--- NOTE | 2022-01-19 06:30 | NUR ---
Patient in room ORTHO 4023. I have received report from HECTOR Keita and had the opportunity to ask questions and assume patient care.
[2022-01-19 07:28] VITALS: BP 126/67
[2022-01-19] MEDS: docusate sod 100mg capsule PO SCH ×2 (07:43→19:59)
[2022-01-19] MEDS: pantoprazole 40mg Tablet.DR PO SCH (07:43)
[2022-01-19] MEDS: piperacillin/tazo 4.5gm/100ml 100 ML IV SCH (07:45)
--- NOTE | 2022-01-19 07:50 | NUR ---
Patient refused to finish second half of milk of magnesia dose at 0750.
[2022-01-19 08:01] LABS: BASOPHILS # (AUTO) 0.1 X10'3 (0-0.2); BASOPHILS % (AUTO) 0.6 % (0-1); EOSINOPHILS # (AUTO) 0.1 X10'3 (0-0.9); HEMATOCRIT 24.8 % (42.0-52.0); HEMOGLOBIN 8.3 g/dl (14.0-17.9); LYMPHOCYTES # (AUTO) 0.7 X10'3 (1.1-4.8); LYMPHOCYTES % (AUTO) 6.7 % (21-51); MEAN CORPUSCULAR HEMOGLOBIN 27.9 PG (27.0-31.0); MEAN CORPUSCULAR HGB CONC 33.5 g/dL (33.0-36.5); MEAN CORPUSCULAR VOLUME 83.3 FL (78-98); MEAN PLATELET VOLUME 6.6 FL (7.4-10.4); MONOCYTES # (AUTO) 0.5 X10'3 (0-0.9); MONOCYTES % (AUTO) 5.4 % (2-12); NEUTROPHILS # (AUTO) 8.4 X10'3 (1.8-7.7); NEUTROPHILS % (AUTO) 86.3 % (42-75); PLATELET COUNT 500 X10'3 (140-440); RED BLOOD COUNT 2.97 X10'6 (4.70-6.10); RED CELL DISTRIBUTION WIDTH 17.2 % (11.5-14.5); WHITE BLOOD COUNT 9.8 X10'3 (4.5-11.0)
[2022-01-19 08:07] LABS: ALANINE AMINOTRANSFERASE 15 U/L (12-78); ALBUMIN 1.2 G/DL (3.4-5.0); ALBUMIN/GLOBULIN RATIO 0.3 (1.1-1.5); ALKALINE PHOSPHATASE 133 IU/L (46-116); ANION GAP 9 (8-16); ASPARTATE AMINO TRANSFERASE 24 U/L (10-37); BILIRUBIN,TOTAL 0.6 MG/DL (0.1-1.0); BLOOD UREA NITROGEN 10 MG/DL (7-18); BUN/CREATININE RATIO 9.4 (5.4-32.0); CALCIUM 7.3 MG/DL (8.5-10.1); CHLORIDE 105 MMOL/L (99-107); CREATININE 1.06 MG/DL (0.60-1.10); GLUCOSE 97 MG/DL (70-104); POTASSIUM 3.1 MMOL/L (3.5-5.1); SODIUM 140 MMOL/L (135-145); TOTAL CARBON DIOXIDE 26.1 MMOL/L (24-32); TOTAL PROTEIN 4.9 G/DL (6.4-8.2); eGFR 69 ML/MIN
[2022-01-19] MEDS ORDERED: magnesium Cl slow-release 64mg tablet PO PRN (08:55)
[2022-01-19] MEDS ORDERED: potassium Cl 20 mEq SR tablet PO PRN (08:55)
[2022-01-19] MEDS ORDERED: magnesium 4gm in 100ml NS 100 ML IV PRN (08:55)
[2022-01-19] MEDS ORDERED: potassium CL 10mEq/100ml bag 100 ML IV PRN (08:55)
[2022-01-19] MEDS ORDERED: magnesium 2GM in 50ml NS 50 ML IV PRN (08:55)
[2022-01-19 09:13] LABS: MAGNESIUM 2.1 MG/DL (1.5-2.4)
[2022-01-19] MEDS: potassium Cl 20 mEq SR tablet PO PRN ×3 (09:39→20:00)
[2022-01-19 10:00] VITALS: BP 142/82
--- NOTE | 2022-01-19 11:09 | NUR ---
Pt unable to have ordered MRI of head D/T post op abdominal clive being present. Paged Dr Montgomery to notify.
--- NOTE | 2022-01-19 11:33 | NUR ---
Student Medication Administration: For this medication-pass time frame, all medication were reviewed, dispensed, administered and documented per hospital policy by cl Carlton.
--- NOTE | 2022-01-19 11:33 | NUR ---
Student documentation: I have reviewed and agree with all interventions, assessments performed and documented by Bianka, deputy director of nursing.
[2022-01-19] MEDS: piperacillin/tazo 3.375gm/50ml 50 ML IV SCH (16:54)
--- NOTE | 2022-01-19 17:04 | NUR ---
Student documentation: I have reviewed and agree with all interventions, assessments performed and documented by Peggy, nursing scheduler.
[2022-01-19 18:00] VITALS: BP_SYST 114; BP_SYST 141; BP_DIAS 66
--- NOTE | 2022-01-19 18:28 | NUR ---
Problems reprioritized. Patient report given, questions answered & plan of care reviewed with HECTOR Rodriguez.
[2022-01-19] MEDS: K and/or MAG REPLACEMENT MC SCH (20:00)
[2022-01-19] MEDS: enoxaparin 40mg/0.4ml syringe SUBCUT SCH (20:01)
[2022-01-19] MEDS: dextrose 5%-1/2 normal saline 1,000 ML IV SCH (20:10)
[2022-01-19 22:00] VITALS: BP 114/66
[2022-01-20] MEDS: piperacillin/tazo 3.375gm/50ml 50 ML IV SCH ×3 (00:11→16:20)
--- NOTE | 2022-01-20 03:17 | NUR ---
Pt pulled out IV, colostomy bag, and condom catheter. Changed linens and replaced all lines/drains. Pt seems confused.
[2022-01-20 06:00] VITALS: BP 114/67
[2022-01-20] MEDS: albuterol 2.5 MG/3 ML nebule NEB SCH ×3 (07:00→14:10)
[2022-01-20 07:30] LABS: MAGNESIUM 2.1 MG/DL (1.5-2.4); POTASSIUM 3.1 MMOL/L (3.5-5.1)
[2022-01-20] MEDS: multivitamins, therapeutics tablet PO SCH (07:50)
[2022-01-20] MEDS: potassium Cl 20 mEq SR tablet PO SCH (07:50)
[2022-01-20] MEDS: potassium Cl 20 mEq SR tablet PO PRN ×3 (07:50→20:10)
[2022-01-20] MEDS: pantoprazole 40mg Tablet.DR PO SCH (07:51)
[2022-01-20] MEDS: docusate sod 100mg capsule PO SCH ×2 (07:58→20:00)
[2022-01-20] MEDS: magnesium hydroxide 30ml (MOM) UD suspension PO SCH ×2 (07:59→20:00)
[2022-01-20] MEDS: K and/or MAG REPLACEMENT MC SCH ×2 (08:00→20:00)
[2022-01-20] MEDS: HYDROcodone/acetaminophen 10/325mg tab PO PRN ×2 (10:16→16:20)
[2022-01-20 14:00] VITALS: BP 106/54
--- NOTE | 2022-01-20 16:27 | NUR ---
Medication administration supervised by Clinical Any Commodity Sales Deliverer
[2022-01-20 18:00] VITALS: BP 117/60
--- NOTE | 2022-01-20 18:08 | NUR ---
Problems reprioritized. Patient report given, questions answered & plan of care reviewed with HECTOR Rodriguez.
--- NOTE | 2022-01-20 18:10 | NUR ---
Patient in room ORTHO 4023. I have received report from HECTOR Mederos and had the opportunity to ask questions and assume patient care.
[2022-01-20] MEDS: enoxaparin 40mg/0.4ml syringe SUBCUT SCH (20:11)
[2022-01-20 22:00] VITALS: BP 111/60
[2022-01-21] VITALS (7 sets, daily range): BP systolic 101–133; BP diastolic 58–67
[2022-01-21] MEDS: piperacillin/tazo 3.375gm/50ml 50 ML IV SCH ×3 (00:32→16:27)
--- NOTE | 2022-01-21 06:28 | NUR ---
Problems reprioritized. Patient report given, questions answered & plan of care reviewed with HECTOR Hawkins.
[2022-01-21 07:55] LABS: MAGNESIUM 2.3 MG/DL (1.5-2.4); POTASSIUM 3.9 MMOL/L (3.5-5.1)
[2022-01-21] MEDS: K and/or MAG REPLACEMENT MC SCH ×2 (08:00→19:32)
[2022-01-21] MEDS: pantoprazole 40mg Tablet.DR PO SCH (08:30)
[2022-01-21] MEDS: magnesium hydroxide 30ml (MOM) UD suspension PO SCH ×3 (08:30→19:33)
[2022-01-21] MEDS: multivitamins, therapeutics tablet PO SCH (08:30)
[2022-01-21] MEDS: docusate sod 100mg capsule PO SCH ×2 (08:30→19:26)
[2022-01-21] MEDS: potassium Cl 20 mEq SR tablet PO SCH (08:31)
[2022-01-21] MEDS: HYDROcodone/acetaminophen 10/325mg tab PO PRN ×2 (09:17→19:26)
--- NOTE | 2022-01-21 11:49 | NUR ---
PT AMBULATED OOB 100FT, TOLERATED WELL 2+ PERSON ASST.
--- NOTE | 2022-01-21 12:41 | NUR ---
[facility] to assess how ostomy pouch is holding. Per primary nurse the drainage end of bag was not closed properly and leaked, the previous shift placed a new wafer. Noted that he has a new ostomy appliance on and there is soft stool in the pouch. Will return in am to assess. Pt agrees. OSTOMY FACTS: Almost everyone has know of, or met, businessmen, entertainers, athletes, and people from all walks of life who have an ostomy. Ostomates (a person that has an ostomy) can ski, ride horses, bowl, and get healthy exercise in countless ways. Your usual activities of daily living can be resumed as soon as you are able. Gradually you will be able to wear the clothes worn before surgery. With modern pouches, nothing is noticeable under your clothing. It may be difficult at first to believe that an intimate relationship can be possible when one's body has been disfigured by surgery. This is not true. Love, fortunately, is not easily destroyed when it is based on genuine appreciation of a person as a thinking, feeling, reacting human being. AN OSTOMY IS NOT AN IMPAIRMENT!! DEFINITIONS: 1.OSTOMY: An opening that is created by a surgical procedure. The opening is called a "stoma". 2.STOMA: A surgical opening in the abdomen (belly) where intestine is brought through the abdominal wall and connected at the skin level. A stoma is shiny, wet and at first is dark purple but eventually turns pink, similar to the inside lining of your mouth. 3.COLON: A portion of the large bowel. 4.COLOSTOMY: A fecal diversion with an opening, (stoma) created anywhere along the colon. Making a connection between the colon and the abdominal wall. 5.ILLEOSTOMY: A fecal diversion with an opening, (stoma) created in the small intestine. Making a connection between the small intestine and the abdominal wall. 6.UROSTOMY: A urinary diversion with the ureters connected to a segment of the small bowel and one end is brought out and connected to the abdominal wall, creating a stoma. SHAPES and SIZES: "The stoma is usually round or oval. "It is anywhere from a dime to half dollar in size. "A stoma reaches its permanent size 6-8 weeks after surgery. PRODUCTS: 1.POUCH or APPLIANCE: An external device to contain stool or urine output and protect the skin around the stoma. It can be a one piece pouch or two pieces (a pouch and a wafer). 2.BARRIER: Substance that is used to protect the skin around the stoma from drainage and adhesive. 3.SKIN PREP or SEALANT: Product applied to the skin to reduce injury from moisture, drainage, or repeated pouch removal. Available in spray or wipes. 4.CLOSURE or CLAMP: A device used to close the bottom of a drainable pouch. 5.BRIDGE or TOM: A piece of plastic placed under a loop of bowel on the skins surface, to secure the bowel in place while the skin heals. POUCH CHANGE PROCEEDURE: 1.Assemble all the supplies "1 or 2 piece appliance "Ostomy paste (if needed) "Ostomy powder (if needed) "Skin prep wipes ( not recommended with coloplast products) "Moist wash cloth or cotton balls 2.Remove plastic center and paper backing from pouch. If pouch or wafer is not precut, use the sizing guide, or plastic backing from pouch to make a pattern. Do this by placing the paper over the stoma and trace it, or draw a pattern. Cut the wafer to fit and set it aside. 3.Remove old pouch by lifting up on tape while pressing skin down away from the tape. If there is a clip on your pouch, remove it and save it. 4.Clean skin or stoma with moistened wash cloth or cotton balls. Place a clean cotton ball over stoma hole to catch any drainage. Let skin dry. 5.For grooves or uneven areas in the skin- apply ostomy paste and sprinkle with ostomy powder, then gently shape the past so the area around the stoma is smooth and as flat as possible. Wipe off or blow away excess. Blot powder with skin prep wipe (DO NOT wipe powder). Let dry until no longer sticky. 6.For irritated or reddened skin- sprinkle ostomy powder on red or irritated area. Wipe off or blow away excess. Blot powder with skin prep wipe (DO NOT wipe powder). Let dry until no longer sticky. 7.Apply skin prep wipe to skin to which the pouch and tape will adhere. Let dry until no longer sticky. 8.If you have a one piece appliance- apply pouch so it is centered around the stoma. No skin should be exposed to stool. All skin should be covered by paste or pouch. 9.If you have a two piece appliance- Apply the wafer as described above, then snap or stick pouch onto wafer. Check to make sure wafer and pouch are securely connected. 10.Place clip on bottom of pouch. 11.Empty pouch when 1/3 full. OSTOMY SKIN CARE: "Good health care and nutrition are essential for healthy skin. "Usually a correct pouch size will prevent skin breakdown. "Use warm water and soap for skin cleansing. "Do not use creams or oil based products on skin around the stoma. This will prevent the appliance from sticking. "Use skin prep around the stoma. IT CAN TAKE 24 HOURS TO SEVERAL DAYS FOR SKIN TO HEAL. IF IT IS NOT RESOLVING, OR GETTING WORSE, CALL YOUR PRIMARY CARE DOCTOR. Addendum: 01/21/22 at 1250 by Laura Neal RN Amended: Links added.
--- NOTE | 2022-01-21 18:44 | NUR ---
Report given to Jennifer YOUNG, patient assisted back to bed and resting comfortably at this time.
--- NOTE | 2022-01-21 18:53 | NUR ---
Patient in room ORTHO 4023. I have received report from HECTOR Hawkins and had the opportunity to ask questions and assume patient care.
[2022-01-21] MEDS: enoxaparin 40mg/0.4ml syringe SUBCUT SCH (19:27)
[2022-01-22] MEDS: piperacillin/tazo 3.375gm/50ml 50 ML IV SCH ×3 (00:36→15:43)
--- NOTE | 2022-01-22 06:17 | NUR ---
Problems reprioritized. Patient report given, questions answered & plan of care reviewed with HECTOR Ledbetter.
[2022-01-22 06:50] LABS: BASOPHILS % (AUTO) 0.3 % (0-1); EOSINOPHILS # (AUTO) 0.2 X10'3 (0-0.9); EOSINOPHILS % (AUTO) 1.6 % (0-6); HEMATOCRIT 26.4 % (42.0-52.0); HEMOGLOBIN 8.5 g/dl (14.0-17.9); LYMPHOCYTES # (AUTO) 0.9 X10'3 (1.1-4.8); LYMPHOCYTES % (AUTO) 9.2 % (21-51); MEAN CORPUSCULAR HEMOGLOBIN 26.9 PG (27.0-31.0); MEAN CORPUSCULAR HGB CONC 32.1 g/dL (33.0-36.5); MEAN PLATELET VOLUME 6.6 FL (7.4-10.4); MONOCYTES # (AUTO) 0.6 X10'3 (0-0.9); MONOCYTES % (AUTO) 6.3 % (2-12); NEUTROPHILS % (AUTO) 82.6 % (42-75); PLATELET COUNT 672 X10'3 (140-440); RED BLOOD COUNT 3.14 X10'6 (4.70-6.10); RED CELL DISTRIBUTION WIDTH 17.6 % (11.5-14.5); WHITE BLOOD COUNT 9.7 X10'3 (4.5-11.0)
[2022-01-22 07:15] VITALS: BP 109/58
[2022-01-22 07:20] LABS: ALANINE AMINOTRANSFERASE 13 U/L (12-78); ALBUMIN 1.4 G/DL (3.4-5.0); ALBUMIN/GLOBULIN RATIO 0.4 (1.1-1.5); ALKALINE PHOSPHATASE 117 IU/L (46-116); ANION GAP 5 (8-16); ASPARTATE AMINO TRANSFERASE 24 U/L (10-37); BILIRUBIN,TOTAL 0.4 MG/DL (0.1-1.0); BLOOD UREA NITROGEN 13 MG/DL (7-18); BUN/CREATININE RATIO 11.6 (5.4-32.0); CALCIUM 7.6 MG/DL (8.5-10.1); CHLORIDE 104 MMOL/L (99-107); CREATININE 1.12 MG/DL (0.60-1.10); GLUCOSE 93 MG/DL (70-104); MAGNESIUM 2.1 MG/DL (1.5-2.4); POTASSIUM 4.5 MMOL/L (3.5-5.1); SODIUM 136 MMOL/L (135-145); TOTAL CARBON DIOXIDE 26.9 MMOL/L (24-32); TOTAL PROTEIN 5.2 G/DL (6.4-8.2); eGFR 65 ML/MIN
[2022-01-22] MEDS: docusate sod 100mg capsule PO SCH ×2 (07:41→22:32)
[2022-01-22] MEDS: multivitamins, therapeutics tablet PO SCH (07:41)
[2022-01-22] MEDS: pantoprazole 40mg Tablet.DR PO SCH (07:41)
[2022-01-22] MEDS: potassium Cl 20 mEq SR tablet PO SCH (07:41)
[2022-01-22] MEDS: magnesium hydroxide 30ml (MOM) UD suspension PO SCH ×2 (07:41→22:32)
[2022-01-22] MEDS: K and/or MAG REPLACEMENT MC SCH ×2 (07:42→20:00)
[2022-01-22 10:13] VITALS: BP 109/65
--- NOTE | 2022-01-22 11:30 | NUR ---
MD aware of swollen head of penis and foreskin being retracted back. Assisted MD in manually returning foreskin to original position.
--- NOTE | 2022-01-22 11:51 | NUR ---
Assisted pt with onel care after incont episode and noted that foreskin is retracted and glans is edematous. Notified primary nurse who will speak to MD cortez this. Unable to retract the foreskin at this time. Addendum: 01/22/22 at 1155 by Laura Neal RN Amended: Links added.
[2022-01-22 15:22] VITALS: BP 100/63
[2022-01-22 17:30] VITALS: BP 108/66
--- NOTE | 2022-01-22 18:10 | NUR ---
Problems reprioritized. Patient report given, questions answered & plan of care reviewed with HECTOR Victoria.
--- NOTE | 2022-01-22 19:27 | NUR ---
Patient in room ORTHO 4023. I have received report from Kaycee YOUNG and had the opportunity to ask questions and assume patient care.
[2022-01-22 22:00] VITALS: BP 106/58
[2022-01-22] MEDS: enoxaparin 40mg/0.4ml syringe SUBCUT SCH (22:31)
[2022-01-22] MEDS: HYDROcodone/acetaminophen 10/325mg tab PO PRN (22:32)
[2022-01-23] MEDS: piperacillin/tazo 3.375gm/50ml 50 ML IV SCH ×3 (02:15→15:22)
[2022-01-23 06:00] VITALS: BP 107/56
[2022-01-23 06:55] LABS: BASOPHILS % (AUTO) 0.3 % (0-1); HEMOGLOBIN 8.3 g/dl (14.0-17.9); MEAN CORPUSCULAR VOLUME 85.2 FL (78-98); NEUTROPHILS # (AUTO) 7.7 X10'3 (1.8-7.7); WHITE BLOOD COUNT 9.9 X10'3 (4.5-11.0)
[2022-01-23 07:00] LABS: EOSINOPHILS # (AUTO) 0.1 X10'3 (0-0.9); EOSINOPHILS % (AUTO) 1.5 % (0-6); HEMATOCRIT 24.8 % (42.0-52.0); LYMPHOCYTES # (AUTO) 1.2 X10'3 (1.1-4.8); LYMPHOCYTES % (AUTO) 12.5 % (21-51); MEAN CORPUSCULAR HEMOGLOBIN 28.5 PG (27.0-31.0); MEAN CORPUSCULAR HGB CONC 33.4 g/dL (33.0-36.5); MEAN PLATELET VOLUME 6.5 FL (7.4-10.4); MONOCYTES # (AUTO) 0.8 X10'3 (0-0.9); MONOCYTES % (AUTO) 7.8 % (2-12); NEUTROPHILS % (AUTO) 77.9 % (42-75); PLATELET COUNT 693 X10'3 (140-440); RED BLOOD COUNT 2.91 X10'6 (4.70-6.10); RED CELL DISTRIBUTION WIDTH 17.7 % (11.5-14.5)
--- NOTE | 2022-01-23 07:01 | NUR ---
Patient in room ORTHO 4023. I have received report from SLAVA YOUNG and had the opportunity to ask questions and assume patient care.
[2022-01-23 07:16] LABS: ALANINE AMINOTRANSFERASE 19 U/L (12-78); ALBUMIN 1.5 G/DL (3.4-5.0); ALBUMIN/GLOBULIN RATIO 0.4 (1.1-1.5); ALKALINE PHOSPHATASE 131 IU/L (46-116); ANION GAP 5 (8-16); ASPARTATE AMINO TRANSFERASE 32 U/L (10-37); BILIRUBIN,TOTAL 0.3 MG/DL (0.1-1.0); BLOOD UREA NITROGEN 13 MG/DL (7-18); BUN/CREATININE RATIO 10.7 (5.4-32.0); CALCIUM 7.8 MG/DL (8.5-10.1); CHLORIDE 104 MMOL/L (99-107); CREATININE 1.22 MG/DL (0.60-1.10); GLUCOSE 105 MG/DL (70-104); MAGNESIUM 2.2 MG/DL (1.5-2.4); POTASSIUM 4.3 MMOL/L (3.5-5.1); SODIUM 136 MMOL/L (135-145); TOTAL CARBON DIOXIDE 27.3 MMOL/L (24-32); TOTAL PROTEIN 5.3 G/DL (6.4-8.2); eGFR 59 ML/MIN
[2022-01-23] MEDS: K and/or MAG REPLACEMENT MC SCH ×2 (08:00→20:00)
[2022-01-23] MEDS: pantoprazole 40mg Tablet.DR PO SCH (09:23)
[2022-01-23] MEDS: multivitamins, therapeutics tablet PO SCH (09:23)
[2022-01-23] MEDS: docusate sod 100mg capsule PO SCH ×3 (09:23→21:27)
[2022-01-23] MEDS: magnesium hydroxide 30ml (MOM) UD suspension PO SCH ×3 (09:24→21:27)
[2022-01-23] MEDS: potassium Cl 20 mEq SR tablet PO SCH (09:24)
[2022-01-23 10:09] VITALS: BP 114/68
--- NOTE | 2022-01-23 10:45 | NUR ---
Reassessment: Patient's diet has been appropriately changed to low fiber. PO intake fluctuates, documented with average 48% PO intake of six meals, which significantly improved to 100% PO intake once minced and moist grind all (MM5) was added to diet order. [facility] 01/22, documented with 950 mL stool output. No nutrition intervention implemented at this time. Will continue to follow. Recommendations: 1) Continue MM5 low fiber diet; advance texture to SB6 per ST recs 2) Smoothies BIDBD 3) Bowel care per MD 4) Weekly scaled weights Addendum: 01/23/22 at [address] Amended: Links added.
[2022-01-23 17:30] VITALS: BP 110/64
--- NOTE | 2022-01-23 18:26 | NUR ---
Problems reprioritized. Patient report given, questions answered & plan of care reviewed with JULIA YOUNG.
--- NOTE | 2022-01-23 18:32 | NUR ---
Patient in room ORTHO 4023. I have received report from Janny Lizama and had the opportunity to ask questions and assume patient care. Addendum: 01/23/22 at 1832 by Betsy Blackmon RN Amended: Links added.
[2022-01-23] MEDS: enoxaparin 40mg/0.4ml syringe SUBCUT SCH ×2 (20:00→21:29)
[2022-01-23 22:00] VITALS: BP 109/69
--- NOTE | 2022-01-24 01:00 | NUR ---
inc of urine skin care done complete bed change colostomy bag burped and was emptied eariler 250 liquid formed stool. pt had refused oral meds eariler and his lovenox.
[2022-01-24] MEDS: piperacillin/tazo 3.375gm/50ml 50 ML IV SCH ×3 (01:07→16:17)
--- NOTE | 2022-01-24 05:35 | NUR ---
inc of urine skin care done and pt changed. tolerated well.
[2022-01-24 06:01] LABS: EOSINOPHILS # (AUTO) 0.1 X10'3 (0-0.9); HEMOGLOBIN 8.5 g/dl (14.0-17.9); MONOCYTES # (AUTO) 0.7 X10'3 (0-0.9); WHITE BLOOD COUNT 9.4 X10'3 (4.5-11.0)
[2022-01-24 06:03] LABS: BASOPHILS % (AUTO) 0.4 % (0-1); EOSINOPHILS % (AUTO) 1.2 % (0-6); HEMATOCRIT 25.9 % (42.0-52.0); LYMPHOCYTES # (AUTO) 1.1 X10'3 (1.1-4.8); LYMPHOCYTES % (AUTO) 12.1 % (21-51); MEAN CORPUSCULAR HEMOGLOBIN 27.7 PG (27.0-31.0); MEAN CORPUSCULAR HGB CONC 32.8 g/dL (33.0-36.5); MEAN CORPUSCULAR VOLUME 84.4 FL (78-98); MEAN PLATELET VOLUME 6.6 FL (7.4-10.4); MONOCYTES % (AUTO) 6.9 % (2-12); NEUTROPHILS # (AUTO) 7.5 X10'3 (1.8-7.7); NEUTROPHILS % (AUTO) 79.4 % (42-75); PLATELET COUNT 761 X10'3 (140-440); RED BLOOD COUNT 3.08 X10'6 (4.70-6.10); RED CELL DISTRIBUTION WIDTH 17.7 % (11.5-14.5)
--- NOTE | 2022-01-24 06:04 | NUR ---
Problems reprioritized. Patient report given, questions answered & plan of care reviewed with HECTOR SERRANO. Addendum: 01/24/22 at 0604 by Betsy Blackmon RN Amended: Links added.
[2022-01-24 06:11] LABS: ALANINE AMINOTRANSFERASE 24 U/L (12-78); ALBUMIN 1.6 G/DL (3.4-5.0); ALBUMIN/GLOBULIN RATIO 0.4 (1.1-1.5); ALKALINE PHOSPHATASE 136 IU/L (46-116); ANION GAP 4 (8-16); ASPARTATE AMINO TRANSFERASE 35 U/L (10-37); BILIRUBIN,TOTAL 0.3 MG/DL (0.1-1.0); BLOOD UREA NITROGEN 14 MG/DL (7-18); BUN/CREATININE RATIO 12.6 (5.4-32.0); CALCIUM 7.7 MG/DL (8.5-10.1); CHLORIDE 103 MMOL/L (99-107); CREATININE 1.11 MG/DL (0.60-1.10); GLUCOSE 97 MG/DL (70-104); POTASSIUM 4.4 MMOL/L (3.5-5.1); SODIUM 134 MMOL/L (135-145); TOTAL CARBON DIOXIDE 26.6 MMOL/L (24-32); TOTAL PROTEIN 5.4 G/DL (6.4-8.2); eGFR 65 ML/MIN
[2022-01-24 07:39] VITALS: BP 110/64
[2022-01-24] MEDS: K and/or MAG REPLACEMENT MC SCH ×2 (08:00→20:00)
[2022-01-24] MEDS: docusate sod 100mg capsule PO SCH ×2 (08:06→20:00)
[2022-01-24] MEDS: multivitamins, therapeutics tablet PO SCH (08:06)
[2022-01-24] MEDS: magnesium hydroxide 30ml (MOM) UD suspension PO SCH ×2 (08:07→20:00)
[2022-01-24] MEDS: potassium Cl 20 mEq SR tablet PO SCH (08:07)
[2022-01-24] MEDS: pantoprazole 40mg Tablet.DR PO SCH (08:07)
--- NOTE | 2022-01-24 08:22 | NUR ---
Patient in room ORTHO 4023. I have received report from JULIA YOUNG and had the opportunity to ask questions and assume patient care.
[2022-01-24] MEDS: HYDROcodone/acetaminophen 10/325mg tab PO PRN ×2 (09:30→21:35)
[2022-01-24 13:55] VITALS: BP 108/67
[2022-01-24 14:00] VITALS: BP 103/59
[2022-01-24 17:30] VITALS: BP 87/68
--- NOTE | 2022-01-24 18:35 | NUR ---
Problems reprioritized. Patient report given, questions answered & plan of care reviewed with [].
--- NOTE | 2022-01-24 18:48 | NUR ---
Patient in room ORTHO 4023. I have received report from HECTOR SERRANO and had the opportunity to ask questions and assume patient care. Addendum: 01/24/22 at 1848 by Betsy Blackmon RN Amended: Links added.
[2022-01-24] MEDS: enoxaparin 40mg/0.4ml syringe SUBCUT SCH (20:00)
--- NOTE | 2022-01-24 21:42 | NUR ---
medicated for pain and itching.
[2022-01-24 22:00] VITALS: BP 118/71
[2022-01-25] MEDS: piperacillin/tazo 3.375gm/50ml 50 ML IV SCH ×3 (00:22→16:29)
[2022-01-25 02:00] VITALS: BP 118/61
[2022-01-25 05:57] LABS: BASOPHILS % (AUTO) 0.3 % (0-1); EOSINOPHILS # (AUTO) 0.1 X10'3 (0-0.9); HEMATOCRIT 26.3 % (42.0-52.0); HEMOGLOBIN 8.7 g/dl (14.0-17.9); LYMPHOCYTES # (AUTO) 1.2 X10'3 (1.1-4.8); LYMPHOCYTES % (AUTO) 15.2 % (21-51); MEAN CORPUSCULAR HEMOGLOBIN 28.4 PG (27.0-31.0); MEAN CORPUSCULAR HGB CONC 33.2 g/dL (33.0-36.5); MEAN CORPUSCULAR VOLUME 85.6 FL (78-98); MEAN PLATELET VOLUME 6.4 FL (7.4-10.4); MONOCYTES # (AUTO) 0.6 X10'3 (0-0.9); MONOCYTES % (AUTO) 7.1 % (2-12); NEUTROPHILS # (AUTO) 6.1 X10'3 (1.8-7.7); NEUTROPHILS % (AUTO) 76.4 % (42-75); PLATELET COUNT 719 X10'3 (140-440); RED BLOOD COUNT 3.08 X10'6 (4.70-6.10); RED CELL DISTRIBUTION WIDTH 18.2 % (11.5-14.5)
[2022-01-25 06:00] VITALS: BP 97/55
[2022-01-25 06:17] LABS: ALANINE AMINOTRANSFERASE 19 U/L (12-78); ALBUMIN 1.6 G/DL (3.4-5.0); ALBUMIN/GLOBULIN RATIO 0.4 (1.1-1.5); ALKALINE PHOSPHATASE 137 IU/L (46-116); ANION GAP 7 (8-16); ASPARTATE AMINO TRANSFERASE 22 U/L (10-37); BILIRUBIN,TOTAL 0.4 MG/DL (0.1-1.0); BLOOD UREA NITROGEN 13 MG/DL (7-18); BUN/CREATININE RATIO 11.1 (5.4-32.0); CALCIUM 7.7 MG/DL (8.5-10.1); CHLORIDE 102 MMOL/L (99-107); CREATININE 1.17 MG/DL (0.60-1.10); GLUCOSE 97 MG/DL (70-104); POTASSIUM 4.2 MMOL/L (3.5-5.1); SODIUM 136 MMOL/L (135-145); TOTAL PROTEIN 5.6 G/DL (6.4-8.2); eGFR 62 ML/MIN
--- NOTE | 2022-01-25 06:36 | NUR ---
Problems reprioritized. Patient report given, questions answered & plan of care reviewed with HECTOR SERRANO. Addendum: 01/25/22 at 0636 by Betsy Blackmon RN Amended: Links added.
--- NOTE | 2022-01-25 06:56 | NUR ---
Patient in room ORTHO 4023. I have received report from Betsy YOUNG and had the opportunity to ask questions and assume patient care.
[2022-01-25] MEDS: magnesium hydroxide 30ml (MOM) UD suspension PO SCH ×3 (08:00→20:00)
[2022-01-25] MEDS: K and/or MAG REPLACEMENT MC SCH ×2 (08:00→20:00)
[2022-01-25] MEDS: potassium Cl 20 mEq SR tablet PO SCH (08:56)
[2022-01-25] MEDS: multivitamins, therapeutics tablet PO SCH (08:56)
[2022-01-25] MEDS: pantoprazole 40mg Tablet.DR PO SCH (08:56)
[2022-01-25] MEDS: docusate sod 100mg capsule PO SCH ×2 (08:56→20:00)
[2022-01-25 10:00] VITALS: BP 116/54
[2022-01-25 17:28] VITALS: BP 104/78
[2022-01-25 17:30] VITALS: BP 105/61
--- NOTE | 2022-01-25 18:10 | NUR ---
Patient in room ORTHO 4023. I have received report from HECTOR SERRANO and had the opportunity to ask questions and assume patient care. Addendum: 01/25/22 at 1811 by Betsy Blackmon RN Amended: Links added.
--- NOTE | 2022-01-25 18:37 | NUR ---
Problems reprioritized. Patient report given, questions answered & plan of care reviewed with Betsy YOUNG.
[2022-01-25] MEDS: enoxaparin 40mg/0.4ml syringe SUBCUT SCH (20:00)
--- NOTE | 2022-01-25 21:15 | NUR ---
granddaughter called and is leaving to area she asked if she could see the pt and aware of cancer spreading from uncle. asked if she could see him, pt was dozing on and off.
--- NOTE | 2022-01-25 21:20 | NUR ---
pt wide awake and talking happily with granddaughter she noted his confusion and stated this is not normal for him. explained that he's not had medications recently to do that so either change of environment, lack of sleep or disease process could contribute to this. she stated everything so far he has talked about is from the past and his work days.
[2022-01-25 22:00] VITALS: BP 112/64
[2022-01-25] MEDS: HYDROcodone/acetaminophen 10/325mg tab PO PRN (22:29)
[2022-01-26] VITALS (7 sets, daily range): BP systolic 87–110; BP diastolic 50–66
--- NOTE | 2022-01-26 | NUR ---
pt attempted to take colostomy off emptied it and attempt to reorient pt.
[2022-01-26] MEDS: piperacillin/tazo 3.375gm/50ml 50 ML IV SCH ×3 (00:13→16:18)
[2022-01-26 05:47] LABS: EOSINOPHILS # (AUTO) 0.1 X10'3 (0-0.9); LYMPHOCYTES # (AUTO) 1.4 X10'3 (1.1-4.8); MEAN PLATELET VOLUME 6.4 FL (7.4-10.4); MONOCYTES # (AUTO) 0.6 X10'3 (0-0.9)
[2022-01-26 05:49] LABS: BASOPHILS % (AUTO) 0.3 % (0-1); EOSINOPHILS % (AUTO) 1.4 % (0-6); HEMOGLOBIN 8.6 g/dl (14.0-17.9); LYMPHOCYTES % (AUTO) 18.3 % (21-51); MEAN CORPUSCULAR HEMOGLOBIN 28.2 PG (27.0-31.0); MEAN CORPUSCULAR HGB CONC 33.1 g/dL (33.0-36.5); MEAN CORPUSCULAR VOLUME 85.2 FL (78-98); MONOCYTES % (AUTO) 7.4 % (2-12); NEUTROPHILS # (AUTO) 5.5 X10'3 (1.8-7.7); NEUTROPHILS % (AUTO) 72.6 % (42-75); PLATELET COUNT 707 X10'3 (140-440); RED BLOOD COUNT 3.05 X10'6 (4.70-6.10); RED CELL DISTRIBUTION WIDTH 18.5 % (11.5-14.5); WHITE BLOOD COUNT 7.6 X10'3 (4.5-11.0)
--- NOTE | 2022-01-26 05:52 | NUR ---
pt sexually trying to rub on rn's arm innc of urine complete lien change and skin care done.
[2022-01-26] MEDS: pantoprazole 40mg Tablet.DR PO SCH (07:30)
[2022-01-26 07:32] LABS: ALANINE AMINOTRANSFERASE 20 U/L (12-78); ALBUMIN 1.7 G/DL (3.4-5.0); ALBUMIN/GLOBULIN RATIO 0.4 (1.1-1.5); ALKALINE PHOSPHATASE 138 IU/L (46-116); ANION GAP 7 (8-16); ASPARTATE AMINO TRANSFERASE 22 U/L (10-37); BILIRUBIN,TOTAL 0.3 MG/DL (0.1-1.0); BLOOD UREA NITROGEN 14 MG/DL (7-18); BUN/CREATININE RATIO 9.8 (5.4-32.0); CALCIUM 8.1 MG/DL (8.5-10.1); CHLORIDE 103 MMOL/L (99-107); CREATININE 1.43 MG/DL (0.60-1.10); GLUCOSE 104 MG/DL (70-104); POTASSIUM 4.2 MMOL/L (3.5-5.1); SODIUM 136 MMOL/L (135-145); TOTAL PROTEIN 5.8 G/DL (6.4-8.2); eGFR 49 ML/MIN
[2022-01-26] MEDS: docusate sod 100mg capsule PO SCH ×2 (08:00→20:25)
[2022-01-26] MEDS: K and/or MAG REPLACEMENT MC SCH ×2 (08:00→20:00)
[2022-01-26] MEDS: magnesium hydroxide 30ml (MOM) UD suspension PO SCH ×2 (08:00→20:25)
[2022-01-26] MEDS: multivitamins, therapeutics tablet PO SCH (09:47)
[2022-01-26] MEDS: potassium Cl 20 mEq SR tablet PO SCH (09:48)
[2022-01-26] MEDS: enoxaparin 40mg/0.4ml syringe SUBCUT SCH (20:32)
[2022-01-26] MEDS: acetaminophen 325mg tablet PO PRN (22:57)
[2022-01-27] MEDS: piperacillin/tazo 3.375gm/50ml 50 ML IV SCH ×2 (00:20→08:48)
[2022-01-27 02:14] VITALS: BP 117/59
--- NOTE | 2022-01-27 02:35 | NUR ---
I reviewed and agree with Flower Inman's (student) charting incl: physical assessment and hourly rounding.
[2022-01-27 07:22] VITALS: BP 96/53
[2022-01-27] MEDS: K and/or MAG REPLACEMENT MC SCH ×2 (08:00→19:42)
[2022-01-27] MEDS: magnesium hydroxide 30ml (MOM) UD suspension PO SCH ×2 (08:48→19:42)
[2022-01-27] MEDS: multivitamins, therapeutics tablet PO SCH (08:48)
[2022-01-27] MEDS: docusate sod 100mg capsule PO SCH ×2 (08:48→19:42)
[2022-01-27] MEDS: potassium Cl 20 mEq SR tablet PO SCH (08:48)
[2022-01-27] MEDS: pantoprazole 40mg Tablet.DR PO SCH (08:48)
[2022-01-27 10:00] VITALS: BP 106/63
--- NOTE | 2022-01-27 11:53 | NUR ---
Reassessment: Pt continues on MM5 low fiber diet and eating well, documented with 75-100% PO intake meeting estimated nutrient needs. Pt remains A/O x 1 and confused though is independent at meals per EMR. LBM 01/26 documented with 200 mL stool output per I&O. Pt continues receiving routine bowel care. No nutrition intervention implemented at this time. Will continue to follow. Recommendations: 1) Continue MM5 low fiber diet; advance texture to SB6 per ST recs 2) Smoothies BIDBD 3) Bowel care per MD 4) Weekly scaled weights Addendum: 01/27/22 at [address] Amended: Links added.
--- NOTE | 2022-01-27 12:30 | NUR ---
Patient peripheral IV found out by the [employer], I went to patient room to ask if he pulled his IV out and he said yes. I asked him why, he said "it starts hurting!" I discouraged patient from doing it and advised him to call his nurse for any IV issue.
[2022-01-27 14:00] VITALS: BP 108/65
--- NOTE | 2022-01-27 16:12 | NUR ---
Paged Dr. Montgomery PAGER ID: [phone] MESSAGE: Ortho/Neuro Arley YOUNG ext [phone]. RE: Mickey Spencer. Patient pulled his IV today, we tried to put a new one no success. His IV Zosyn discontinued today, Can we just leave the IV off?
[2022-01-27 18:00] VITALS: BP 100/64
[2022-01-27] MEDS: enoxaparin 40mg/0.4ml syringe SUBCUT SCH (19:45)
[2022-01-27 22:00] VITALS: BP 103/53
[2022-01-28 06:00] VITALS: BP 136/82
[2022-01-28 06:34] LABS: BASOPHILS % (AUTO) 0.5 % (0-1); EOSINOPHILS # (AUTO) 0.1 X10'3 (0-0.9); EOSINOPHILS % (AUTO) 1.4 % (0-6); HEMATOCRIT 27.4 % (42.0-52.0); HEMOGLOBIN 8.9 g/dl (14.0-17.9); LYMPHOCYTES # (AUTO) 1.4 X10'3 (1.1-4.8); LYMPHOCYTES % (AUTO) 15.5 % (21-51); MEAN CORPUSCULAR HEMOGLOBIN 27.7 PG (27.0-31.0); MEAN CORPUSCULAR HGB CONC 32.6 g/dL (33.0-36.5); MEAN CORPUSCULAR VOLUME 84.8 FL (78-98); MEAN PLATELET VOLUME 6.6 FL (7.4-10.4); MONOCYTES # (AUTO) 0.5 X10'3 (0-0.9); MONOCYTES % (AUTO) 5.6 % (2-12); NEUTROPHILS # (AUTO) 6.9 X10'3 (1.8-7.7); PLATELET COUNT 594 X10'3 (140-440); RED BLOOD COUNT 3.23 X10'6 (4.70-6.10); RED CELL DISTRIBUTION WIDTH 18.2 % (11.5-14.5)
[2022-01-28 06:58] LABS: ALANINE AMINOTRANSFERASE 14 U/L (12-78); ALBUMIN 1.8 G/DL (3.4-5.0); ALBUMIN/GLOBULIN RATIO 0.4 (1.1-1.5); ALKALINE PHOSPHATASE 150 IU/L (46-116); ANION GAP 7 (8-16); ASPARTATE AMINO TRANSFERASE 18 U/L (10-37); BILIRUBIN,TOTAL 0.3 MG/DL (0.1-1.0); BLOOD UREA NITROGEN 19 MG/DL (7-18); BUN/CREATININE RATIO 17.1 (5.4-32.0); CALCIUM 8.4 MG/DL (8.5-10.1); CHLORIDE 103 MMOL/L (99-107); CREATININE 1.11 MG/DL (0.60-1.10); GLUCOSE 99 MG/DL (70-104); POTASSIUM 4.5 MMOL/L (3.5-5.1); SODIUM 136 MMOL/L (135-145); TOTAL CARBON DIOXIDE 26.2 MMOL/L (24-32); TOTAL PROTEIN 6.2 G/DL (6.4-8.2); eGFR 65 ML/MIN
--- NOTE | 2022-01-28 07:51 | NUR ---
Patient in room ORTHO 4023. I have received report from HECTOR Elizabeth and had the opportunity to ask questions and assume patient care.
[2022-01-28] MEDS: K and/or MAG REPLACEMENT MC SCH ×2 (08:00→20:00)
[2022-01-28] MEDS: potassium Cl 20 mEq SR tablet PO SCH (08:05)
[2022-01-28] MEDS: docusate sod 100mg capsule PO SCH ×2 (08:05→21:22)
[2022-01-28] MEDS: pantoprazole 40mg Tablet.DR PO SCH (08:05)
[2022-01-28] MEDS: multivitamins, therapeutics tablet PO SCH (08:05)
[2022-01-28] MEDS: magnesium hydroxide 30ml (MOM) UD suspension PO SCH ×2 (08:06→21:23)
[2022-01-28 10:00] VITALS: BP 109/67
[2022-01-28 14:00] VITALS: BP 107/54
--- NOTE | 2022-01-28 14:06 | NUR ---
Wound care in with RN student for assessment of stoma secondary to mucosal separation. The pt is lying in bed in no apparent acute distress. Greeted and explained intent, agreeable to treatment. Removed the ostomy appliance, soft light brown effluent noted in collection bag. The onel skin was cleansed with warm water removing all stool. Mucosal separation noted at 7-9 o'clock appearing as red and moist skin. measurements and picture documentation obtained. New ostomy appliance placed achieving a good seal. The midline abdominal incision has a scant amount of serous drainage noted centrally, cleansed w/NS and patted dry. Ostomy education provided for which the patient will require reinforcement. Bed left at the lowest position, call light/personal items in reach.
[2022-01-28 18:00] VITALS: BP 104/66
--- NOTE | 2022-01-28 18:49 | NUR ---
Patient in room ORTHO 4023. I have received report from Dulce Maria YOUNG and had the opportunity to ask questions and assume patient care.
--- NOTE | 2022-01-28 19:04 | NUR ---
Problems reprioritized. Patient report given, questions answered & plan of care reviewed with HECTOR Nelson.
[2022-01-28] MEDS ORDERED: iohexol 300mg/ml 100ml inj. ONE (19:29)
[2022-01-28] MEDS: enoxaparin 40mg/0.4ml syringe SUBCUT SCH (21:26)
[2022-01-28 22:00] VITALS: BP 103/56
[2022-01-29] MEDS: piperacillin/tazo 3.375gm/50ml 50 ML IV SCH ×3 (00:33→16:46)
--- NOTE | 2022-01-29 05:50 | NUR ---
Preceptor documentation: I have reviewed and agree with all interventions, assessments performed and documented by Candy CHILDERS.
[2022-01-29 06:00] VITALS: BP 108/55
--- NOTE | 2022-01-29 06:18 | NUR ---
Problems reprioritized. Patient report given, questions answered & plan of care reviewed with HECTOR العراقي.
--- NOTE | 2022-01-29 06:48 | NUR ---
Patient in room ORTHO 4023. I have received report from HECTOR Gupta and had the opportunity to ask questions and assume patient care.
[2022-01-29] MEDS: docusate sod 100mg capsule PO SCH ×2 (07:55→19:31)
[2022-01-29] MEDS: potassium Cl 20 mEq SR tablet PO SCH (07:55)
[2022-01-29] MEDS: multivitamins, therapeutics tablet PO SCH (07:55)
[2022-01-29] MEDS: magnesium hydroxide 30ml (MOM) UD suspension PO SCH ×2 (07:55→19:33)
[2022-01-29] MEDS: pantoprazole 40mg Tablet.DR PO SCH (07:56)
[2022-01-29] MEDS: K and/or MAG REPLACEMENT MC SCH ×2 (08:00→20:00)
[2022-01-29 10:00] VITALS: BP 108/66
[2022-01-29 14:00] VITALS: BP 102/59
[2022-01-29 18:00] VITALS: BP 107/60
--- NOTE | 2022-01-29 18:40 | NUR ---
Problems reprioritized. Patient report given, questions answered & plan of care reviewed with HECTOR Smith.
--- NOTE | 2022-01-29 18:44 | NUR ---
Patient in room ORTHO 4023. I have received report from COLETTE YOUNG and had the opportunity to ask questions and assume patient care.
[2022-01-29] MEDS: enoxaparin 40mg/0.4ml syringe SUBCUT SCH (19:32)
[2022-01-29 22:00] VITALS: BP 106/50
[2022-01-30] MEDS: piperacillin/tazo 3.375gm/50ml 50 ML IV SCH ×3 (00:03→16:32)
[2022-01-30 02:00] VITALS: BP 116/62
[2022-01-30 06:00] VITALS: BP 95/60
--- NOTE | 2022-01-30 06:48 | NUR ---
Problems reprioritized. Patient report given, questions answered & plan of care reviewed with COLETTE YOUNG.
--- NOTE | 2022-01-30 07:03 | NUR ---
Patient in room ORTHO 4023. I have received report from HECTOR Smith and had the opportunity to ask questions and assume patient care.
[2022-01-30] MEDS: K and/or MAG REPLACEMENT MC SCH ×2 (08:00→19:43)
[2022-01-30] MEDS: magnesium hydroxide 30ml (MOM) UD suspension PO SCH ×2 (08:12→19:53)
[2022-01-30] MEDS: multivitamins, therapeutics tablet PO SCH (08:12)
[2022-01-30] MEDS: pantoprazole 40mg Tablet.DR PO SCH (08:12)
[2022-01-30] MEDS: potassium Cl 20 mEq SR tablet PO SCH (08:12)
[2022-01-30] MEDS: docusate sod 100mg capsule PO SCH ×2 (08:12→19:53)
[2022-01-30 10:00] VITALS: BP 101/60
[2022-01-30 14:00] VITALS: BP 111/67
[2022-01-30 18:00] VITALS: BP 105/62
--- NOTE | 2022-01-30 19:01 | NUR ---
Problems reprioritized. Patient report given, questions answered & plan of care reviewed with HECTOR Vasquez.
--- NOTE | 2022-01-30 19:07 | NUR ---
Patient in room ORTHO 4023. I have received report from TONI YOUNG and had the opportunity to ask questions and assume patient care.
[2022-01-30] MEDS: enoxaparin 40mg/0.4ml syringe SUBCUT SCH (19:53)
[2022-01-30 22:00] VITALS: BP 113/73
[2022-01-31] MEDS: piperacillin/tazo 3.375gm/50ml 50 ML IV SCH ×4 (00:17→10:13)
[2022-01-31] MEDS: HYDROcodone/acetaminophen 10/325mg tab PO PRN (03:25)
--- NOTE | 2022-01-31 06:15 | NUR ---
Patient in room ORTHO 4023. I have received report from Christina and had the opportunity to ask questions and assume patient care.
[2022-01-31 07:00] VITALS: BP 132/75
[2022-01-31] MEDS: multivitamins, therapeutics tablet PO SCH (07:14)
[2022-01-31] MEDS: docusate sod 100mg capsule PO SCH (07:14)
[2022-01-31] MEDS: pantoprazole 40mg Tablet.DR PO SCH (07:14)
[2022-01-31] MEDS: potassium Cl 20 mEq SR tablet PO SCH (07:14)
[2022-01-31] MEDS: magnesium hydroxide 30ml (MOM) UD suspension PO SCH ×2 (07:14→20:00)
[2022-01-31] MEDS: K and/or MAG REPLACEMENT MC SCH ×2 (07:15→20:00)
[2022-01-31 11:00] VITALS: BP 98/61
--- NOTE | 2022-01-31 12:30 | NUR ---
Pt found walking in hallway, after ripping out second IV. Escorted patient back into his chair. Asked if the nurses could put another IV in him, which he promptly stated cussing the staff, telling them that he does not want that "hippie thing". Bed alarm unable to turn on since the bed cannot identify that there is a patient in the bed. New bed trying to be found. MD paged and aware. Unfortunately, with the the patient's infection, he will need IV antibiotics. MD is planning on ordering medication, and if the situation continues, adding a sitter and restraints.
--- NOTE | 2022-01-31 12:47 | NUR ---
Page Sent promotional table spacer PAGER ID: [phone] MESSAGE: [phone]. Johanna. Pt ripped out 2nd IV today. Cussed us out when we asked about putting another one in. Can we switch to oral antibiotics? Dank zayas
[2022-01-31] MEDS ORDERED: haloperidol lactate 5mg/ml inj IM PRN (12:50)
[2022-01-31 15:00] VITALS: BP 104/60
--- NOTE | 2022-01-31 16:44 | NUR ---
After some convincing patient let me put 2nd IV in of the day. But when he saw the why port he started cussing at me telling me " you're not putting that thing in my arm", (while using the F word). He took the 22 gauge catheter and pulled out of arm and he threw it across the room. I tired explaining to him that he needs the antibiotics but instead he just gets mad and starts cussing.
--- NOTE | 2022-01-31 16:50 | NUR ---
charge nurse placed a new iv, pt pulled iv out and through the iv on the ground saying that 'i no longer want that shit,' I sent a page to hospitalist asking for an order to keep iv out and change pt medications, hospital said to 'place a sitter on the patient' and hospitalist said ' i will figure out what to do next'
[2022-01-31 18:00] VITALS: BP 104/49
[2022-01-31] MEDS: enoxaparin 40mg/0.4ml syringe SUBCUT SCH (20:00)
--- NOTE | 2022-01-31 20:00 | NUR ---
Pt refused all needles. Will not let me give him Lovenox or try to start a new IV for the IV abx. Pt says, "I will not be stuck with another needle, fuck this shit!" Swung to hit the RN and kicking legs. Attempted to reason with pt on 2 separate occasions without success.
[2022-01-31] MEDS: quetiapine 100mg tablet PO SCH (20:57)
[2022-01-31 22:00] VITALS: BP 90/44
[2022-02-01 06:00] VITALS: BP 113/64
--- NOTE | 2022-02-01 06:53 | NUR ---
Patient in room ORTHO 4023a. I have received report from Elyssa YOUNG and had the opportunity to ask questions and assume patient care.
[2022-02-01] MEDS: K and/or MAG REPLACEMENT MC SCH ×2 (08:00→20:00)
--- NOTE | 2022-02-01 08:30 | NUR ---
Patient still refusing to be poked for antibiotic therapy.
[2022-02-01] MEDS: potassium Cl 20 mEq SR tablet PO SCH (08:58)
[2022-02-01] MEDS: magnesium hydroxide 30ml (MOM) UD suspension PO SCH ×2 (08:58→20:00)
[2022-02-01] MEDS: multivitamins, therapeutics tablet PO SCH (08:58)
[2022-02-01] MEDS: pantoprazole 40mg Tablet.DR PO SCH (08:58)
[2022-02-01 10:00] VITALS: BP 107/67
--- NOTE | 2022-02-01 14:54 | NUR ---
OSTOMY FACTS: Almost everyone has know of, or met, businessmen, entertainers, athletes, and people from all walks of life who have an ostomy. Ostomates (a person that has an ostomy) can ski, ride horses, bowl, and get healthy exercise in countless ways. Your usual activities of daily living can be resumed as soon as you are able. Gradually you will be able to wear the clothes worn before surgery. With modern pouches, nothing is noticeable under your clothing. It may be difficult at first to believe that an intimate relationship can be possible when one's body has been disfigured by surgery. This is not true. Love, fortunately, is not easily destroyed when it is based on genuine appreciation of a person as a thinking, feeling, reacting human being. AN OSTOMY IS NOT AN IMPAIRMENT!! DEFINITIONS: 1.OSTOMY: An opening that is created by a surgical procedure. The opening is called a "stoma". 2.STOMA: A surgical opening in the abdomen (belly) where intestine is brought through the abdominal wall and connected at the skin level. A stoma is shiny, wet and at first is dark purple but eventually turns pink, similar to the inside lining of your mouth. 3.COLON: A portion of the large bowel. 4.COLOSTOMY: A fecal diversion with an opening, (stoma) created anywhere along the colon. Making a connection between the colon and the abdominal wall. 5.ILLEOSTOMY: A fecal diversion with an opening, (stoma) created in the small intestine. Making a connection between the small intestine and the abdominal wall. 6.UROSTOMY: A urinary diversion with the ureters connected to a segment of the small bowel and one end is brought out and connected to the abdominal wall, creating a stoma. SHAPES and SIZES: "The stoma is usually round or oval. "It is anywhere from a dime to half dollar in size. "A stoma reaches its permanent size 6-8 weeks after surgery. PRODUCTS: 1.POUCH or APPLIANCE: An external device to contain stool or urine output and protect the skin around the stoma. It can be a one piece pouch or two pieces (a pouch and a wafer). 2.BARRIER: Substance that is used to protect the skin around the stoma from drainage and adhesive. 3.SKIN PREP or SEALANT: Product applied to the skin to reduce injury from moisture, drainage, or repeated pouch removal. Available in spray or wipes. 4.CLOSURE or CLAMP: A device used to close the bottom of a drainable pouch. 5.BRIDGE or TOM: A piece of plastic placed under a loop of bowel on the skins surface, to secure the bowel in place while the skin heals. POUCH CHANGE PROCEEDURE: 1.Assemble all the supplies "1 or 2 piece appliance "Ostomy paste (if needed) "Ostomy powder (if needed) "Skin prep wipes ( not recommended with coloplast products) "Moist wash cloth or cotton balls 2.Remove plastic center and paper backing from pouch. If pouch or wafer is not precut, use the sizing guide, or plastic backing from pouch to make a pattern. Do this by placing the paper over the stoma and trace it, or draw a pattern. Cut the wafer to fit and set it aside. 3.Remove old pouch by lifting up on tape while pressing skin down away from the tape. If there is a clip on your pouch, remove it and save it. 4.Clean skin or stoma with moistened wash cloth or cotton balls. Place a clean cotton ball over stoma hole to catch any drainage. Let skin dry. 5.For grooves or uneven areas in the skin- apply ostomy paste and sprinkle with ostomy powder, then gently shape the past so the area around the stoma is smooth and as flat as possible. Wipe off or blow away excess. Blot powder with skin prep wipe (DO NOT wipe powder). Let dry until no longer sticky. 6.For irritated or reddened skin- sprinkle ostomy powder on red or irritated area. Wipe off or blow away excess. Blot powder with skin prep wipe (DO NOT wipe powder). Let dry until no longer sticky. 7.Apply skin prep wipe to skin to which the pouch and tape will adhere. Let dry until no longer sticky. 8.If you have a one piece appliance- apply pouch so it is centered around the stoma. No skin should be exposed to stool. All skin should be covered by paste or pouch. 9.If you have a two piece appliance- Apply the wafer as described above, then snap or stick pouch onto wafer. Check to make sure wafer and pouch are securely connected. 10.Place clip on bottom of pouch. 11.Empty pouch when 1/3 full. OSTOMY SKIN CARE: "Good health care and nutrition are essential for healthy skin. "Usually a correct pouch size will prevent skin breakdown. "Use warm water and soap for skin cleansing. "Do not use creams or oil based products on skin around the stoma. This will prevent the appliance from sticking. "Use skin prep around the stoma. IT CAN TAKE 24 HOURS TO SEVERAL DAYS FOR SKIN TO HEAL. IF IT IS NOT RESOLVING, OR GETTING WORSE, CALL YOUR PRIMARY CARE DOCTOR. PRESSURE ULCER EDUCATION: DEFINITION: A pressure ulcer is an area of skin that breaks down when you stay in one position too long. The constant pressure against the skin reduces the blood flow to that area and the affected tissue dies. CAUSES: "Being bedridden or in a wheelchair "Fragile skin "Having a chronic condition, such as diabetes or vascular disease "Inability to move certain parts of your body without assistance "Older age "Incontinence of urine or stool SYMPTOMS: "A reddened area that DOES NOT turn white when pressed on - this can be the beginning of a pressure ulcer "A blister, deep sore or a crater - these can be advanced pressure ulcers FIRST AID: "Relieve the pressure on this area "Keep the area clean and dry "Call your primary doctor if you see any of the above symptoms "DO NOT massage the area "DO NOT use a donut shaped or ring shaped pillow- these actually interfere with the blood flow and cause complications PREVENTION: "Check for pressure ulcers everyday "Change position at least every two hours to relieve pressure "Use items that help relieve pressure- pillows, sheepskin, foam padding, and powders. "Keep skin clean and dry "Eat healthy well balanced meals "Exercise daily IF YOU SEE ANY OF THESE SYMPTOMS WHILE IN THE HOSPITAL - TELL YOUR NURSE IMMEDIATELY. IF YOU SEE ANY OF THESE SYMPTOMS WHILE AT HOME OR HAVE ANY QUESTIONS OR CONCERNS ABOUT PRESSURE ULCERS - CALL YOUR PRIMARY DOCTOR IMMEDIATELY. Addendum: 02/01/22 at 1454 by Sarah Jordan LVN Amended: Links added.
[2022-02-01] MEDS: acetaminophen 325mg tablet PO PRN (14:56)
[2022-02-01 18:00] VITALS: BP 112/69
--- NOTE | 2022-02-01 18:19 | NUR ---
Problems reprioritized. Patient report given, questions answered & plan of care reviewed with Glenn YOUNG.
[2022-02-01] MEDS: enoxaparin 40mg/0.4ml syringe SUBCUT SCH (20:00)
[2022-02-01] MEDS: quetiapine 100mg tablet PO SCH (20:02)
--- NOTE | 2022-02-01 20:03 | NUR ---
Patient refusing all needles-no lovenox or iv start. Refusing MOM too.
[2022-02-01 22:00] VITALS: BP 105/60
[2022-02-02 06:00] VITALS: BP 108/60
[2022-02-02] MEDS: magnesium hydroxide 30ml (MOM) UD suspension PO SCH ×2 (08:00→21:23)
--- NOTE | 2022-02-02 08:46 | NUR ---
Reassessment: Pt now on EC7 diet and continues to eat mostly 100% of meals meeting est nutrient needs at this time. Pt is noted to be agitated and aggressive w/ staff, refusing some meds and any needles per nursing documentation. Noted w/ 450ml ostomy output 5/2, receiving routine MoM though sometimes refuses. Will continue to monitor. Recommendations: 1) Continue EC7 diet as tolerated; add back Low Fiber 2) Smoothies BIDBD 3) Bowel care per MD 4) Weekly scaled weights Addendum: 02/02/22 at [address] Amended: Links added.
[2022-02-02] MEDS: K and/or MAG REPLACEMENT MC SCH ×2 (08:51→20:00)
[2022-02-02] MEDS: pantoprazole 40mg Tablet.DR PO SCH (08:57)
[2022-02-02] MEDS: multivitamins, therapeutics tablet PO SCH (08:57)
[2022-02-02 10:00] VITALS: BP 115/66
[2022-02-02] MEDS: HYDROcodone/acetaminophen 10/325mg tab PO PRN (13:34)
--- NOTE | 2022-02-02 13:34 | NUR ---
Dr. Chung rounded, every other staple to be removed.
--- NOTE | 2022-02-02 14:45 | NUR ---
EVERY OTHER STAPLE REMOVED, STERI STRIPS APPLIED TO UPPER ABDOMEN, ABOVE NAVEL WHERE WOUND CLOSURE WAS QUESTIONABLE.
[2022-02-02] MEDS: quetiapine 100mg tablet PO SCH (21:23)
[2022-02-02] MEDS: enoxaparin 40mg/0.4ml syringe SUBCUT SCH (21:23)
--- NOTE | 2022-02-02 23:00 | NUR ---
Inserted 20G IV on pts left AC. Pt tolerated it well without difficulty. All medications and injections were even and pt remained calm. Will continue to monitor. Addendum: 02/04/22 at 0049 by Sindy Gibbons RN Inserted 20G IV on pts left AC. Pt tolerated it well without difficulty. All medications and injections were given and pt remained calm. Will continue to monitor
[2022-02-03 06:00] VITALS: BP 117/70
--- NOTE | 2022-02-03 06:40 | NUR ---
Patient in room ORTHO 4023. I have received report from ok calvillo and had the opportunity to ask questions and assume patient care.
[2022-02-03] MEDS: K and/or MAG REPLACEMENT MC SCH ×2 (08:00→20:00)
[2022-02-03] MEDS: magnesium hydroxide 30ml (MOM) UD suspension PO SCH ×3 (08:00→20:40)
[2022-02-03] MEDS: pantoprazole 40mg Tablet.DR PO SCH (08:39)
[2022-02-03] MEDS: piperacillin/tazo 3.375gm/50ml 50 ML IV SCH ×3 (08:39→17:39)
[2022-02-03] MEDS: multivitamins, therapeutics tablet PO SCH (08:39)
[2022-02-03] MEDS: potassium Cl 20 mEq SR tablet PO SCH (08:40)
[2022-02-03 10:13] VITALS: BP 92/55
[2022-02-03 16:23] VITALS: BP 109/56
[2022-02-03 18:00] VITALS: BP 104/62
--- NOTE | 2022-02-03 18:15 | NUR ---
Patient in room ORTHO 4023. I have received report from HECTOR Long and had the opportunity to ask questions and assume patient care.
--- NOTE | 2022-02-03 18:38 | NUR ---
Problems reprioritized. Patient report given, questions answered & plan of care reviewed with CLARISSE YOUNG.
[2022-02-03] MEDS: enoxaparin 40mg/0.4ml syringe SUBCUT SCH (20:40)
[2022-02-03] MEDS: quetiapine 100mg tablet PO SCH (20:41)
[2022-02-03 22:00] VITALS: BP 103/63
[2022-02-04] MEDS: piperacillin/tazo 3.375gm/50ml 50 ML IV SCH ×3 (00:41→16:35)
[2022-02-04] MEDS: magnesium hydroxide 30ml (MOM) UD suspension PO SCH ×2 (06:21→20:10)
[2022-02-04 06:25] VITALS: BP 111/63
--- NOTE | 2022-02-04 06:42 | NUR ---
Problems reprioritized. Patient report given, questions answered & plan of care reviewed with HECTOR Long.
[2022-02-04] MEDS: multivitamins, therapeutics tablet PO SCH (07:22)
[2022-02-04] MEDS: potassium Cl 20 mEq SR tablet PO SCH (07:22)
[2022-02-04] MEDS: pantoprazole 40mg Tablet.DR PO SCH (07:22)
[2022-02-04] MEDS: K and/or MAG REPLACEMENT MC SCH ×2 (08:00→20:00)
[2022-02-04 09:47] LABS: BASOPHILS # (AUTO) 0.1 X10'3 (0-0.2); BASOPHILS % (AUTO) 1.3 % (0-1); EOSINOPHILS # (AUTO) 0.4 X10'3 (0-0.9); EOSINOPHILS % (AUTO) 7.1 % (0-6); HEMATOCRIT 25.4 % (42.0-52.0); HEMOGLOBIN 8.3 g/dl (14.0-17.9); LYMPHOCYTES % (AUTO) 15.4 % (21-51); MEAN CORPUSCULAR HEMOGLOBIN 27.9 PG (27.0-31.0); MEAN CORPUSCULAR HGB CONC 32.6 g/dL (33.0-36.5); MEAN CORPUSCULAR VOLUME 85.5 FL (78-98); MEAN PLATELET VOLUME 6.1 FL (7.4-10.4); MONOCYTES # (AUTO) 0.5 X10'3 (0-0.9); NEUTROPHILS # (AUTO) 4.2 X10'3 (1.8-7.7); NEUTROPHILS % (AUTO) 68.2 % (42-75); PLATELET COUNT 398 X10'3 (140-440); RED BLOOD COUNT 2.97 X10'6 (4.70-6.10); RED CELL DISTRIBUTION WIDTH 18.8 % (11.5-14.5); WHITE BLOOD COUNT 6.2 X10'3 (4.5-11.0)
[2022-02-04 10:00] VITALS: BP 105/57
[2022-02-04 10:02] LABS: ALANINE AMINOTRANSFERASE 13 U/L (12-78); ALBUMIN 2.1 G/DL (3.4-5.0); ALBUMIN/GLOBULIN RATIO 0.5 (1.1-1.5); ALKALINE PHOSPHATASE 158 IU/L (46-116); ANION GAP 7 (8-16); ASPARTATE AMINO TRANSFERASE 17 U/L (10-37); BILIRUBIN,TOTAL 0.3 MG/DL (0.1-1.0); BLOOD UREA NITROGEN 21 MG/DL (7-18); BUN/CREATININE RATIO 17.6 (5.4-32.0); CALCIUM 8.4 MG/DL (8.5-10.1); CHLORIDE 104 MMOL/L (99-107); CREATININE 1.19 MG/DL (0.60-1.10); GLUCOSE 130 MG/DL (70-104); POTASSIUM 3.9 MMOL/L (3.5-5.1); SODIUM 138 MMOL/L (135-145); TOTAL CARBON DIOXIDE 27.5 MMOL/L (24-32); TOTAL PROTEIN 6.5 G/DL (6.4-8.2); eGFR 60 ML/MIN
[2022-02-04 18:00] VITALS: BP 107/65
--- NOTE | 2022-02-04 18:29 | NUR ---
Problems reprioritized. Patient report given, questions answered & plan of care reviewed with MILLA LOYOLA RN.
--- NOTE | 2022-02-04 18:30 | NUR ---
Patient in room ORTHO 4023. I have received report from NATALIE YOUNG and had the opportunity to ask questions and assume patient care.
[2022-02-04] MEDS: quetiapine 100mg tablet PO SCH (20:06)
[2022-02-04] MEDS: HYDROcodone/acetaminophen 10/325mg tab PO PRN (20:09)
[2022-02-04] MEDS: enoxaparin 40mg/0.4ml syringe SUBCUT SCH (20:10)
[2022-02-04 22:00] VITALS: BP 100/70
[2022-02-05] MEDS: piperacillin/tazo 3.375gm/50ml 50 ML IV SCH ×3 (00:21→16:00)
--- NOTE | 2022-02-05 06:19 | NUR ---
Problems reprioritized. Patient report given, questions answered & plan of care reviewed with NERI YOUNG.
[2022-02-05 06:30] VITALS: BP 104/68
[2022-02-05 07:29] LABS: BASOPHILS # (AUTO) 0.1 X10'3 (0-0.2); BASOPHILS % (AUTO) 1.3 % (0-1); EOSINOPHILS # (AUTO) 0.5 X10'3 (0-0.9); EOSINOPHILS % (AUTO) 8.9 % (0-6); HEMOGLOBIN 8.5 g/dl (14.0-17.9); LYMPHOCYTES # (AUTO) 0.9 X10'3 (1.1-4.8); LYMPHOCYTES % (AUTO) 15.1 % (21-51); MEAN CORPUSCULAR HGB CONC 32.6 g/dL (33.0-36.5); MEAN CORPUSCULAR VOLUME 85.7 FL (78-98); MEAN PLATELET VOLUME 6.3 FL (7.4-10.4); MONOCYTES # (AUTO) 0.4 X10'3 (0-0.9); NEUTROPHILS # (AUTO) 4.1 X10'3 (1.8-7.7); NEUTROPHILS % (AUTO) 67.7 % (42-75); PLATELET COUNT 395 X10'3 (140-440); RED BLOOD COUNT 3.04 X10'6 (4.70-6.10); RED CELL DISTRIBUTION WIDTH 18.9 % (11.5-14.5)
[2022-02-05 07:34] LABS: ANION GAP 5 (8-16); BLOOD UREA NITROGEN 19 MG/DL (7-18); BUN/CREATININE RATIO 14.1 (5.4-32.0); CALCIUM 8.2 MG/DL (8.5-10.1); CHLORIDE 107 MMOL/L (99-107); CREATININE 1.35 MG/DL (0.60-1.10); GLUCOSE 87 MG/DL (70-104); POTASSIUM 4.2 MMOL/L (3.5-5.1); SODIUM 141 MMOL/L (135-145); TOTAL CARBON DIOXIDE 28.6 MMOL/L (24-32); eGFR 52 ML/MIN
[2022-02-05] MEDS: magnesium hydroxide 30ml (MOM) UD suspension PO SCH ×2 (07:47→20:33)
[2022-02-05] MEDS: pantoprazole 40mg Tablet.DR PO SCH (07:47)
[2022-02-05] MEDS: potassium Cl 20 mEq SR tablet PO SCH (07:47)
[2022-02-05] MEDS: multivitamins, therapeutics tablet PO SCH (07:47)
[2022-02-05] MEDS: K and/or MAG REPLACEMENT MC SCH ×2 (07:49→20:00)
[2022-02-05 08:16] LABS: ANISOCYTOSIS 2+; PLATELET ESTIMATE NORMAL; POIKILOCYTOSIS FEW
[2022-02-05 10:00] VITALS: BP 99/64
--- NOTE | 2022-02-05 14:14 | NUR ---
patient pulled out IV and pulled off his colostomy bag. replace colostomy bag and explained to patient why it is important to keep it on there.
--- NOTE | 2022-02-05 15:35 | NUR ---
Wound care in to assess mucosal separation of right ABD colostomy. The primary nurse reports that she had just replaced the ostomy appliance secondary to the patient having "picked" off the old appliance saying "I don't want this s--t on me anymore!". She states that she explained to the patient the purpose of the colostomy and he was compliant with application of the new one. Stoma was visualized through the clear collection bag. Mucosal separation to 8-9 o'clock does not appear to have worsened, exact measurement was not possible at this time. Education was reinforced concerning the need to keep the appliance in place. The patient gave a return of stated understanding. WOC will continue to follow. Bed was left in the lowest position, call light/personal items in reach.
[2022-02-05 15:51] VITALS: BP 94/64
--- NOTE | 2022-02-05 17:00 | NUR ---
PAGER ID: [phone] MESSAGE: [id number] Ana Rosa Spencer: patient pulled his IV, refusing to have a new one placed. He is not receiving 1600 dose of Zosyn. thanks ! ilay [phone]
[2022-02-05 18:00] VITALS: BP 117/77
--- NOTE | 2022-02-05 18:24 | NUR ---
Problems reprioritized. Patient report given, questions answered & plan of care reviewed with HECTOR Baires.
--- NOTE | 2022-02-05 18:30 | NUR ---
Patient in room ORTHO 4021. I have received report from NERI YOUNG and had the opportunity to ask questions and assume patient care.
--- NOTE | 2022-02-05 19:30 | NUR ---
PATIENT STILL REFUSED PIV START EVEN AFTER SEVERAL TIMES OF EXPLANATIONS.
[2022-02-05] MEDS: enoxaparin 40mg/0.4ml syringe SUBCUT SCH ×2 (20:00→20:30)
[2022-02-05] MEDS: HYDROcodone/acetaminophen 10/325mg tab PO PRN (20:29)
[2022-02-05 22:00] VITALS: BP 109/61
[2022-02-05] MEDS: quetiapine 100mg tablet PO SCH (22:00)
--- NOTE | 2022-02-05 22:00 | NUR ---
PATIENT REFUSED TO HAVE HIS LOVENOX SHOT. "NO NEEDLES FOR ME" EVEN AFTER EXPLANATIONS.
[2022-02-06 06:14] LABS: BASOPHILS # (AUTO) 0.1 X10'3 (0-0.2); BASOPHILS % (AUTO) 1.4 % (0-1); EOSINOPHILS # (AUTO) 0.5 X10'3 (0-0.9); EOSINOPHILS % (AUTO) 8.6 % (0-6); HEMATOCRIT 26.1 % (42.0-52.0); HEMOGLOBIN 8.3 g/dl (14.0-17.9); MEAN CORPUSCULAR HGB CONC 31.7 g/dL (33.0-36.5); MEAN CORPUSCULAR VOLUME 85.1 FL (78-98); MEAN PLATELET VOLUME 6.3 FL (7.4-10.4); MONOCYTES # (AUTO) 0.5 X10'3 (0-0.9); MONOCYTES % (AUTO) 8.6 % (2-12); NEUTROPHILS # (AUTO) 3.7 X10'3 (1.8-7.7); NEUTROPHILS % (AUTO) 63.4 % (42-75); PLATELET COUNT 406 X10'3 (140-440); RED BLOOD COUNT 3.07 X10'6 (4.70-6.10); RED CELL DISTRIBUTION WIDTH 18.8 % (11.5-14.5); WHITE BLOOD COUNT 5.8 X10'3 (4.5-11.0)
--- NOTE | 2022-02-06 06:22 | NUR ---
Problems reprioritized. Patient report given, questions answered & plan of care reviewed with ZACH RN.
[2022-02-06 06:27] LABS: ALBUMIN 2.2 G/DL (3.4-5.0); ANION GAP 8 (8-16); BLOOD UREA NITROGEN 19 MG/DL (7-18); CALCIUM 8.6 MG/DL (8.5-10.1); CHLORIDE 105 MMOL/L (99-107); CREATININE 1.19 MG/DL (0.60-1.10); GLUCOSE 84 MG/DL (70-104); POTASSIUM 4.2 MMOL/L (3.5-5.1); SODIUM 140 MMOL/L (135-145); TOTAL CARBON DIOXIDE 27.2 MMOL/L (24-32); eGFR 60 ML/MIN
[2022-02-06 06:41] VITALS: BP 102/61
--- NOTE | 2022-02-06 06:50 | NUR ---
Patient in room ORTHO 4021. I have received report from Viry YOUNG and had the opportunity to ask questions and assume patient care.
[2022-02-06 07:11] LABS: ANISOCYTOSIS 2+; MICROCYTOSIS 1+; PLATELET ESTIMATE NORMAL; POIKILOCYTOSIS FEW
[2022-02-06] MEDS: piperacillin/tazo 3.375gm/50ml 50 ML IV SCH ×2 (08:00)
[2022-02-06] MEDS: K and/or MAG REPLACEMENT MC SCH ×2 (08:00→20:00)
[2022-02-06] MEDS: magnesium hydroxide 30ml (MOM) UD suspension PO SCH ×2 (08:00→20:00)
[2022-02-06] MEDS: pantoprazole 40mg Tablet.DR PO SCH (08:40)
[2022-02-06] MEDS: potassium Cl 20 mEq SR tablet PO SCH (08:40)
[2022-02-06] MEDS: multivitamins, therapeutics tablet PO SCH (08:40)
[2022-02-06 10:30] VITALS: BP 102/57
--- NOTE | 2022-02-06 11:41 | NUR ---
PAGER ID: [phone] MESSAGE: Dl Mcnamara re:[id number] Ana Rosa Spencer explained to family level of care patient needs, follow up with Oncology and what not and family has agreed to take him home.
[2022-02-06 14:00] VITALS: BP 93/58
--- NOTE | 2022-02-06 14:20 | NUR ---
Patient discharge orders are in but unable to reach family at this time for transport. Will call back at a later time.
--- NOTE | 2022-02-06 17:31 | NUR ---
Called patient family for ride home but not able to reach family at this time.
--- NOTE | 2022-02-06 17:35 | NUR ---
PAGER ID: [phone] MESSAGE: Dl Mcnamara re: [id number] Ana Rosa Aceves Patient family was never reached to set up a ride to [place]. Many attempts made, patient still in hospital at this time.
--- NOTE | 2022-02-06 17:45 | NUR ---
I have reviewed and all interventions, assessments performed and documented by Christopher CHILDERS.
[2022-02-06 18:00] VITALS: BP 105/61
--- NOTE | 2022-02-06 18:29 | NUR ---
Problems reprioritized. Patient report given, questions answered & plan of care reviewed with KAREN YOUNG.
--- NOTE | 2022-02-06 18:46 | NUR ---
Patient in room ORTHO 4021. I have received report from ZACH YOUNG and had the opportunity to ask questions and assume patient care.
[2022-02-06] MEDS: enoxaparin 40mg/0.4ml syringe SUBCUT SCH (20:00)
[2022-02-06] MEDS: quetiapine 100mg tablet PO SCH (20:01)
[2022-02-06 22:00] VITALS: BP 101/55
[2022-02-07 05:36] LABS: BASOPHILS # (AUTO) 0.1 X10'3 (0-0.2); EOSINOPHILS # (AUTO) 0.4 X10'3 (0-0.9); EOSINOPHILS % (AUTO) 6.3 % (0-6); HEMATOCRIT 26.1 % (42.0-52.0); HEMOGLOBIN 8.4 g/dl (14.0-17.9); LYMPHOCYTES # (AUTO) 1.3 X10'3 (1.1-4.8); LYMPHOCYTES % (AUTO) 21.8 % (21-51); MEAN CORPUSCULAR HEMOGLOBIN 27.6 PG (27.0-31.0); MEAN CORPUSCULAR HGB CONC 32.1 g/dL (33.0-36.5); MEAN CORPUSCULAR VOLUME 85.9 FL (78-98); MEAN PLATELET VOLUME 6.3 FL (7.4-10.4); MONOCYTES # (AUTO) 0.5 X10'3 (0-0.9); MONOCYTES % (AUTO) 8.5 % (2-12); NEUTROPHILS # (AUTO) 3.8 X10'3 (1.8-7.7); NEUTROPHILS % (AUTO) 62.4 % (42-75); PLATELET COUNT 380 X10'3 (140-440); RED BLOOD COUNT 3.04 X10'6 (4.70-6.10); RED CELL DISTRIBUTION WIDTH 18.6 % (11.5-14.5); WHITE BLOOD COUNT 6.2 X10'3 (4.5-11.0)
[2022-02-07 05:47] LABS: ALBUMIN 2.2 G/DL (3.4-5.0); ANION GAP 7 (8-16); BLOOD UREA NITROGEN 20 MG/DL (7-18); BUN/CREATININE RATIO 17.5 (5.4-32.0); CALCIUM 8.4 MG/DL (8.5-10.1); CHLORIDE 106 MMOL/L (99-107); CREATININE 1.14 MG/DL (0.60-1.10); GLUCOSE 95 MG/DL (70-104); POTASSIUM 4.3 MMOL/L (3.5-5.1); SODIUM 140 MMOL/L (135-145); TOTAL CARBON DIOXIDE 27.2 MMOL/L (24-32); eGFR 64 ML/MIN
--- NOTE | 2022-02-07 06:21 | NUR ---
Problems reprioritized. Patient report given, questions answered & plan of care reviewed with ZACH RN.
--- NOTE | 2022-02-07 06:49 | NUR ---
Patient in room ORTHO 4021. I have received report from KAREN YOUNG and had the opportunity to ask questions and assume patient care.
[2022-02-07 07:02] VITALS: BP 119/68
[2022-02-07 07:44] LABS: ANISOCYTOSIS 2+; HYPOCHROMASIA 1+; PLATELET ESTIMATE NORMAL; POLYCHROMASIA 1+
[2022-02-07] MEDS: multivitamins, therapeutics tablet PO SCH (07:59)
[2022-02-07] MEDS: potassium Cl 20 mEq SR tablet PO SCH (08:00)
[2022-02-07] MEDS: pantoprazole 40mg Tablet.DR PO SCH (08:00)
[2022-02-07] MEDS: magnesium hydroxide 30ml (MOM) UD suspension PO SCH ×2 (08:00→20:00)
[2022-02-07] MEDS: K and/or MAG REPLACEMENT MC SCH ×2 (08:00→20:00)
[2022-02-07 10:41] VITALS: BP 100/71
[2022-02-07 14:00] VITALS: BP 119/69
[2022-02-07 18:30] VITALS: BP 118/78
--- NOTE | 2022-02-07 18:35 | NUR ---
Patient in room ORTHO 4021. I have received report from HECTOR Lizama and had the opportunity to ask questions and assume patient care. sitter in room. pt calm at this time, pt was discharged home, lives in [place]. nursing and DCP unable to locate brother, pt has no ride home. Addendum: 02/07/22 at 1859 by Ade Abreu RN Amended: Links added.
--- NOTE | 2022-02-07 18:45 | NUR ---
Problems reprioritized. Patient report given, questions answered & plan of care reviewed with Anca YOUNG.
[2022-02-07] MEDS: enoxaparin 40mg/0.4ml syringe SUBCUT SCH (20:00)
--- NOTE | 2022-02-07 20:29 | NUR ---
refusing meds at this time. hs snack given. Addendum: 02/07/22 at 2028 by Ade Abreu RN Amended: Links added.
--- NOTE | 2022-02-07 21:00 | NUR ---
Pt is calm and pleasant at this time, staying in bed, using call light. refuses some medications, denies any pain and refuses any pain medication. cooperative with most care, resistive at times. pt is confused to place, pt states he is at home even after told he is still in hospital. pt did start to raise voice and states someone took something from his room a "big machine" pt refuses a bath, but did allow hs care, onel care, ostomy care and washed face. refused oral care, states will rinse mouth when needed, has mouthwash at bedside. sitter is in room if needed. Addendum: 02/07/22 at 2126 by Ade Abreu RN Amended: Links added.
[2022-02-07] MEDS: quetiapine 100mg tablet PO SCH (21:10)
[2022-02-07 22:42] VITALS: BP 117/70
--- NOTE | 2022-02-08 05:57 | NUR ---
Problems reprioritized. Patient report given, questions answered & plan of care reviewed with HECTOR Rodrigues. Addendum: 02/08/22 at 0558 by Ade Abreu RN Amended: Links added.
[2022-02-08 06:00] VITALS: BP 101/56
[2022-02-08 06:02] LABS: BASOPHILS # (AUTO) 0.1 X10'3 (0-0.2); BASOPHILS % (AUTO) 0.9 % (0-1); EOSINOPHILS # (AUTO) 0.4 X10'3 (0-0.9); EOSINOPHILS % (AUTO) 5.1 % (0-6); HEMATOCRIT 26.7 % (42.0-52.0); HEMOGLOBIN 8.7 g/dl (14.0-17.9); LYMPHOCYTES # (AUTO) 1.4 X10'3 (1.1-4.8); LYMPHOCYTES % (AUTO) 20.7 % (21-51); MEAN CORPUSCULAR HEMOGLOBIN 27.8 PG (27.0-31.0); MEAN CORPUSCULAR HGB CONC 32.6 g/dL (33.0-36.5); MEAN CORPUSCULAR VOLUME 85.3 FL (78-98); MEAN PLATELET VOLUME 6.1 FL (7.4-10.4); MONOCYTES # (AUTO) 0.6 X10'3 (0-0.9); MONOCYTES % (AUTO) 8.3 % (2-12); NEUTROPHILS # (AUTO) 4.5 X10'3 (1.8-7.7); PLATELET COUNT 402 X10'3 (140-440); RED BLOOD COUNT 3.13 X10'6 (4.70-6.10); RED CELL DISTRIBUTION WIDTH 19.3 % (11.5-14.5); WHITE BLOOD COUNT 6.9 X10'3 (4.5-11.0)
[2022-02-08 06:12] LABS: ALBUMIN 2.3 G/DL (3.4-5.0); ANION GAP 5 (8-16); BLOOD UREA NITROGEN 20 MG/DL (7-18); BUN/CREATININE RATIO 17.7 (5.4-32.0); CALCIUM 8.6 MG/DL (8.5-10.1); CHLORIDE 106 MMOL/L (99-107); CREATININE 1.13 MG/DL (0.60-1.10); GLUCOSE 93 MG/DL (70-104); POTASSIUM 4.2 MMOL/L (3.5-5.1); SODIUM 138 MMOL/L (135-145); TOTAL CARBON DIOXIDE 27.4 MMOL/L (24-32); eGFR 64 ML/MIN
--- NOTE | 2022-02-08 07:40 | NUR ---
Reassessment: Pt now on EC7 diet and continues to eat mostly 100% of meals meeting est nutrient needs at this time. Pt is noted to be agitated and aggressive w/ staff, refusing some meds and care per nursing documentation. Noted w/ 1000ml ostomy output 02/07, receiving routine MoM though sometimes refuses. Will continue to monitor. Recommendations: 1) Continue EC7 diet as tolerated; add back Low Fiber 2) Smoothies BIDBD 3) Bowel care per MD 4) Weekly scaled weights Addendum: 02/08/22 at [address] Amended: Links added.
[2022-02-08] MEDS: potassium Cl 20 mEq SR tablet PO SCH (07:54)
[2022-02-08] MEDS: pantoprazole 40mg Tablet.DR PO SCH (07:54)
[2022-02-08] MEDS: multivitamins, therapeutics tablet PO SCH (07:54)
[2022-02-08] MEDS: magnesium hydroxide 30ml (MOM) UD suspension PO SCH ×2 (07:55→20:00)
[2022-02-08] MEDS: K and/or MAG REPLACEMENT MC SCH ×2 (07:55→20:00)
[2022-02-08 10:00] VITALS: BP 109/69
--- NOTE | 2022-02-08 18:06 | NUR ---
Report given to Anca YOUNG
[2022-02-08 18:30] VITALS: BP 113/68
--- NOTE | 2022-02-08 18:30 | NUR ---
Patient in room ORTHO 4021. I have received report from HECTOR Rodrigues and had the opportunity to ask questions and assume patient care. Addendum: 02/08/22 at 1937 by Ade Abreu RN Amended: Links added.
[2022-02-08] MEDS: enoxaparin 40mg/0.4ml syringe SUBCUT SCH (20:00)
[2022-02-08] MEDS: quetiapine 100mg tablet PO SCH (20:48)
[2022-02-08 22:17] VITALS: BP 108/66
[2022-02-09 06:00] VITALS: BP 108/62
--- NOTE | 2022-02-09 06:17 | NUR ---
Problems reprioritized. Patient report given, questions answered & plan of care reviewed with HECTOR MARIEE. Addendum: 02/09/22 at 0617 by Ade Abreu RN Amended: Links added.
--- NOTE | 2022-02-09 06:27 | NUR ---
Patient in room ORTHO 4021. I have received report from ILIANA YOUNG and had the opportunity to ask questions and assume patient care.
[2022-02-09 06:33] LABS: BASOPHILS # (AUTO) 0.1 X10'3 (0-0.2); BASOPHILS % (AUTO) 1.1 % (0-1); EOSINOPHILS # (AUTO) 0.3 X10'3 (0-0.9); EOSINOPHILS % (AUTO) 4.6 % (0-6); HEMATOCRIT 26.9 % (42.0-52.0); HEMOGLOBIN 8.9 g/dl (14.0-17.9); LYMPHOCYTES # (AUTO) 1.4 X10'3 (1.1-4.8); MEAN CORPUSCULAR HEMOGLOBIN 28.2 PG (27.0-31.0); MEAN CORPUSCULAR HGB CONC 33.1 g/dL (33.0-36.5); MEAN CORPUSCULAR VOLUME 85.1 FL (78-98); MEAN PLATELET VOLUME 5.9 FL (7.4-10.4); MONOCYTES # (AUTO) 0.5 X10'3 (0-0.9); MONOCYTES % (AUTO) 7.5 % (2-12); NEUTROPHILS # (AUTO) 4.6 X10'3 (1.8-7.7); NEUTROPHILS % (AUTO) 66.8 % (42-75); PLATELET COUNT 396 X10'3 (140-440); RED BLOOD COUNT 3.16 X10'6 (4.70-6.10); RED CELL DISTRIBUTION WIDTH 18.6 % (11.5-14.5); WHITE BLOOD COUNT 6.9 X10'3 (4.5-11.0)
[2022-02-09 07:02] LABS: ALBUMIN 2.3 G/DL (3.4-5.0); ANION GAP 10 (8-16); BLOOD UREA NITROGEN 20 MG/DL (7-18); BUN/CREATININE RATIO 15.7 (5.4-32.0); CALCIUM 8.4 MG/DL (8.5-10.1); CHLORIDE 105 MMOL/L (99-107); CREATININE 1.27 MG/DL (0.60-1.10); GLUCOSE 88 MG/DL (70-104); POTASSIUM 3.9 MMOL/L (3.5-5.1); SODIUM 140 MMOL/L (135-145); TOTAL CARBON DIOXIDE 25.2 MMOL/L (24-32); eGFR 56 ML/MIN
[2022-02-09] MEDS: K and/or MAG REPLACEMENT MC SCH ×2 (08:00→20:00)
[2022-02-09] MEDS: multivitamins, therapeutics tablet PO SCH (08:47)
[2022-02-09] MEDS: potassium Cl 20 mEq SR tablet PO SCH (08:48)
[2022-02-09] MEDS: magnesium hydroxide 30ml (MOM) UD suspension PO SCH ×2 (08:48→21:03)
[2022-02-09] MEDS: pantoprazole 40mg Tablet.DR PO SCH (08:48)
[2022-02-09 10:00] VITALS: BP 109/65
--- NOTE | 2022-02-09 11:32 | NUR ---
WOC: Ostomy device changed, some skin exposed from current appliance. Cleansed with normal saline, applied powder to seperation and red skin and wet with skin barrier. New appliance applied, molded to fit stoma size. No need to cut wafer. Please mold wafer to size of stoma. Patient tolerated well. Addendum: 02/09/22 at 1134 by Sepideh Reyes RN Amended: Links added.
--- NOTE | 2022-02-09 17:00 | NUR ---
patient has been pleasant and compliant this shift. wound team changed colostomy bag see note. no c/o pain.
[2022-02-09 18:00] VITALS: BP 110/60
--- NOTE | 2022-02-09 18:44 | NUR ---
Problems reprioritized. Patient report given, questions answered & plan of care reviewed with Viry YOUNG.
--- NOTE | 2022-02-09 18:45 | NUR ---
Patient in room ORTHO 4021. I have received report from KODI YOUNG and had the opportunity to ask questions and assume patient care.
[2022-02-09] MEDS: quetiapine 100mg tablet PO SCH (21:01)
[2022-02-09] MEDS: HYDROcodone/acetaminophen 10/325mg tab PO PRN (21:02)
[2022-02-09] MEDS: enoxaparin 40mg/0.4ml syringe SUBCUT SCH (21:03)
[2022-02-09 22:00] VITALS: BP 115/71
--- NOTE | 2022-02-10 06:05 | NUR ---
Problems reprioritized. Patient report given, questions answered & plan of care reviewed with KODI YOUNG.
--- NOTE | 2022-02-10 06:07 | NUR ---
Patient in room ORTHO 4021. I have received report from ramya calvillo and had the opportunity to ask questions and assume patient care.
--- NOTE | 2022-02-10 06:29 | NUR ---
Problems reprioritized. Patient report given, questions answered & plan of care reviewed with rajinder Ye.
--- NOTE | 2022-02-10 06:45 | NUR ---
Patient in room ORTHO 4021. I have received report from Elodia and had the opportunity to ask questions and assume patient care.
[2022-02-10] MEDS: potassium Cl 20 mEq SR tablet PO SCH (08:13)
[2022-02-10] MEDS: pantoprazole 40mg Tablet.DR PO SCH (08:13)
[2022-02-10] MEDS: magnesium hydroxide 30ml (MOM) UD suspension PO SCH (08:13)
[2022-02-10] MEDS: multivitamins, therapeutics tablet PO SCH (08:13)
--- NOTE | 2022-02-10 13:35 | NUR ---
patient seen by DR dao is for discharge if brother shows up to take patient home. ceramic research engineer Laura instructed patient and brother on stoma and colostomy care. supplies given. All DC instructions given to patient and brother . Patient DC home via private car to home with brother in stable condition.
== END 2022-02-10 13:25 | disposition home or self-care (01) | DRG 853 ==
LOC: ER 17:37 → ED HOLD 23:23 → PCU 3S 01-12 01:04 → SUR 3N 01-12 11:18 → ORTHO 4S 01-17 16:13
PROVIDERS: ADMIT Family Medicine; ATTEND Internal Medicine
PROC: 0DN80ZZ Release Small Intestine, Open Approach (ICD-10-PCS; 2022-01-12)
PROC: 0DBL0ZZ Excision of Transverse Colon, Open Approach (ICD-10-PCS; principal; 2022-01-12 06:09)
PROC: BW211ZZ Computerized Tomography (CT Scan) of Abdomen and Pelvis using Low Osmolar Contrast (ICD-10-PCS; 2022-01-28)
DX: A41.9 Sepsis, unspecified organism (principal); G93.41 Metabolic encephalopathy; K63.1 Perforation of intestine (nontraumatic); K65.9 Peritonitis, unspecified; C18.4 Malignant neoplasm of transverse colon; N17.9 Acute kidney failure, unspecified; N39.0 Urinary tract infection, site not specified; K56.7 Ileus, unspecified; C78.00 Secondary malignant neoplasm of unspecified lung; C78.7 Secondary malignant neoplasm of liver and intrahepatic bile duct; D62 Acute posthemorrhagic anemia; E44.0 Moderate protein-calorie malnutrition; Z68.1 Body mass index [BMI] 19.9 or less, adult; K56.50 Intestinal adhesions [bands], unspecified as to partial versus complete obstruction; F03.90 Unspecified dementia, unspecified severity, without behavioral disturbance, psychotic disturbance, mood disturbance, and anxiety; D63.0 Anemia in neoplastic disease; E86.1 Hypovolemia; F17.210 Nicotine dependence, cigarettes, uncomplicated; D75.839 Thrombocytosis, unspecified; B96.20 Unspecified Escherichia coli [E. coli] as the cause of diseases classified elsewhere; B95.4 Other streptococcus as the cause of diseases classified elsewhere; J44.9 Chronic obstructive pulmonary disease, unspecified; K57.90 Diverticulosis of intestine, part unspecified, without perforation or abscess without bleeding; N18.9 Chronic kidney disease, unspecified; R09.02 Hypoxemia; R16.0 Hepatomegaly, not elsewhere classified; Z90.49 Acquired absence of other specified parts of digestive tract; Z71.6 Tobacco abuse counseling; E87.6 Hypokalemia
CPT/HCPCS: 36415; 70450; 71045; 71250; 74176; 74177; 80048; 80053; 80061; 81001; 82140; 82378; 82550; 82948; 83036; 83605; 83690; 83735; 83880; 84100; 84132; 84145; 84443; 84484; 85008; 85025; 85610; 85730; 86880; 86885; 86900; 86901; 87040; 87070; 87075; 87076; 87077; 87081; 87088; 87185; 87186; 88309; 88323; 92508; 92616; 94760; 96365; 97110; 97116; 97161; 97530; 97535; 99285; A4618; A6407; A6449; A7000; C9113; G0378; J0694; J0696; J1650; J2060; J2250; J2543; J2704; J2710; J3010; J3490; J7030; J7042; J7120; P9045; Q0163; Q9963; Q9967